=== PATIENT | female | born 1975 | race Caucasian/White ===

== ENCOUNTER 2019-12-20 22:10 | Emergency (ER) | payer MEDICARE, SELFPAY ==
--- NOTE | ~2019-12-20 | XR_ITS ---
XR knee RT min 4V 12/20/2019 22:34 INDICATION: Right knee pain PROCEDURE: 4 views right knee COMPARISON: No prior studies for comparison. FINDINGS: Fracture, dislocation or subluxation is not identified. No significant joint effusion. Mild osteoarthritis of the knee. The soft tissues appear within normal limits. No foreign bodies are darwin ntified. IMPRESSION: 1: NO ACUTE BONE OR JOINT ABNORMALITY IDENTIFIED. Reviewed, dictated and finalized at location A.
[2019-12-20 22:15] VITALS: BP 131/83; PULSE 99; RESP 14; TEMP 36.2; O2SAT 100
--- NOTE | 2019-12-20 22:16 | ED.LOWEXIN ---
HPI - Extremity Injury (Lower) General Chief Complaint: Extremity Injury, Lower Stated Complaint: KNEE PAIN Time Seen by Provider: 12/20/19 22:16 Source: patient Mode of arrival: ambulatory Limitations: no limitations History of Present Illness HPI Narrative: Patient is a 44-year-old female who presents for evaluation right knee pain over the past 3 weeks. Patient has reported intermittent pain in the right knee that travels into her right calf. She denies redness, but does report swelling in the right calf. She reports that she had been taking glucosamine and chondroitin [id number] with minimal to no improvement in her symptoms. She had also been taking anti-inflammatories without any improvement. Patient states she has history of many injuries in this knee but but denies any history of surgeries. She states she has bad arthritis in this knee. Patient states that today she was trying to get up onto the bed of her truck when she heard a loud popping sensation and felt immediate pain on the inside aspect of the right knee. Patient denies any bruising, redness. She reports pain radiates down into her calf. She denies any numbness. She purchased a knee brace from [employer], has been wearing that which does seem to help the pain. Related Data Allergies Allergy/AdvReac Type Severity Reaction Status Date / Time No Known Allergies Allergy Unverified 10/16/15 11:46 Review of Systems Review of Systems: Narrative: CONSTITUTIONAL: Denies fever, chills, or sweats. ENT: Denies rhinorrhea, congestion, sore throat, or otalgia. CARDIOVASCULAR: Denies chest pain, palpitations, or edema. RESPIRATORY: Denies cough or dyspnea. GASTROINTESTINAL: Denies abdominal pain, nausea, vomiting, or diarrhea. GENITOURINARY: Denies dysuria or hematuria. SKIN: Denies rash or itching. MUSCULOSKELETAL: Denies back pain, reports right knee pain, right calf pain NEUROLOGIC: Denies headache, numbness, or weakness. [facility] Past Medical History Medical History (Updated 12/20/19 @ 23:29 by Velvet Silverman MD) Methamphetamine abuse Social History Social History (Updated 12/20/19 @ 22:29 by Velvet Silverman MD) Smoking status: Current every day smoker Tobacco type: cigarettes Alcohol intake: current Substance use: current Substance use type: amphetamines Gender identity (if verbalized by the patient): Female Exam Narrative: Exam Narrative: GENERAL: Awake, alert, conversant HEAD: Normocephalic, atraumatic. EYES: PERRLA and EOMI. ENT: Nares clear, no rhinorrhea or epistaxis. Mucous membranes moist. NECK: Supple. CHEST: No respiratory distress, breathing even and non labored HEART: Regular rate, sinus rhythm ABDOMEN:Non distended, non tender EXTREMITIES: Right knee: No tenderness overlying the patella. No obvious deformity or ecchymoses. Mild knee effusion. No erythema or warmth. Tenderness to the medial aspect of the right knee. No lateral tenderness. No pain with internal or external rotation of the right hip. There is pain with active and passive flexion of the right knee. No pain with extension. Mild, nonpitting edema of the right lower extremity. No calf tenderness. Intact sensation distally. DP pulse 2+. SKIN: Warm, dry, no rash. NEURO:No focal deficits. Alert and oriented x3 Course Vital Signs Vital signs: Vital Signs Temperature 36.2 C L 12/20/19 22:15 Pulse Rate 99 12/20/19 22:15 Respiratory Rate 14 12/20/19 22:15 Blood Pressure 131/83 12/20/19 22:15 Pulse Oximetry 100 12/20/19 22:15 Temperature 36.2 C L 12/20/19 22:15 Pulse Rate 99 12/20/19 22:15 Respiratory Rate 14 12/20/19 22:15 Blood Pressure 131/83 12/20/19 22:15 Pulse Oximetry 100 12/20/19 22:15 MDM - Extremity Injury (Lower) MDM Narrative Medical decision making narrative: Patient presented for evaluation of acute on chronic right knee pain, seems to worsen after standing onto a tailgate of her truck today with immediat
[2019-12-20 23:21] LABS: D Dimer 0.36 ug/mL (<0.48)
[2019-12-20 23:55] VITALS: BP 135/76; PULSE 92; RESP 16; TEMP 36.6; O2SAT 99
== END 2019-12-20 23:58 | disposition home or self-care (01) ==
PROVIDERS: Emergency Provider Emergency Medicine
DX: S86.911A Strain of unspecified muscle(s) and tendon(s) at lower leg level, right leg, initial encounter (principal); F17.210 Nicotine dependence, cigarettes, uncomplicated; M17.11 Unilateral primary osteoarthritis, right knee; X50.9XXA Other and unspecified overexertion or strenuous movements or postures, initial encounter
CPT/HCPCS: 36415; 73564; 85380; 99283

== ENCOUNTER 2021-12-08 19:19 | Inpatient (IN) | payer MEDICARE, SELFPAY ==
[2021-12-08] VITALS (10 sets, daily range): BP systolic 114–136; BP diastolic 59–98; PULSE 80–127; RESP 15–23; TEMP 36.4–37.1; O2SAT 95–100; BMI 33.7
--- NOTE | ~2021-12-08 | MR_ITS ---
EXAMINATION: MR brain/brain stem wo con DATE: 12/11/2021 17:00 INDICATION: Headache. Seizure. TECHNIQUE: Magnetic resonance imaging (MRI) of the brain and brainstem was performed without intraven ous contrast. COMPARISON: Head CT 12/08/2021 FINDINGS: There is no intracranial hemorrhage, acute infarction, or abnormal intracranial mass lesion . The hippocampi are normal and symmetric. The ventricles are normal in size. There are small bilater al mastoid effusions. There is mild mucosal thickening in left maxillary sinus. The orbits are normal . IMPRESSION: 1. Normal brain. Reviewed, dictated and finalized at location A. IMPRESSION: 1. Normal brain.
--- NOTE | ~2021-12-08 | US_ITS ---
EXAMINATION: US abdomen complete DATE: 12/10/2021 11:08 INDICATION: Nondiabetic hypoglycemia TECHNIQUE: Multiple grayscale and Doppler ultrasound images of the abdomen were obtained. COMPARISON: None available FINDINGS: The head and body of the pancreas are normal. The pancreatic tail is obscured by bowel gas. The liver is normal with normal echogenicity and echotexture. No surface nodularity. Normal hepatope nando flow in the main portal vein. The gallbladder is normal with no abnormal wall thickening, pericho lecystic fluid or stones. The normal common bile duct measures 5 mm. There was no sonographic Broussard sign. The visualized portions of the aorta and inferior vena cava are normal. The right kidney measures 11.9 x 3.7 x 5.2 cm. The left kidney measures 11.3 x 5.7 x 6.8 cm. The kidn eys demonstrate normal parenchymal echogenicity. There is no hydronephrosis. Multiple hyperechoic foc i of the spleen are consistent with old granulomatous disease. The spleen measures 11.3 cm. IMPRESSION: 1. No sonographic correlate for the patient's symptoms. Reviewed, dictated and finalized at location A.
--- NOTE | ~2021-12-08 | US_ITS ---
EXAMINATION: US venous doppler UE DATE: 12/13/2021 09:25 INDICATION: Left upper extremity edema and erythema TECHNIQUE: Harvey scale images with and without compression and Doppler images of the left upper extrem ity veins were obtained. COMPARISON: None. FINDINGS: The left internal jugular vein, subclavian vein, axillary vein, brachial veins, radial vein, and ulna r vein are patent. There is superficial thrombosis of the left basilic and cephalic veins. IMPRESSION: 1. Patent left upper extremity deep veins. No evidence of deep venous thrombosis. 2: Superficial thrombosis of the left basilic and cephalic veins. Reviewed, dictated and finalized at location A. IMPRESSION: 1. Patent left upper extremity deep veins. No evidence of deep venous thrombosi s. 2: Superficial thrombosis of the left basilic and cephalic veins.
--- NOTE | ~2021-12-08 | CT_ITS ---
EXAMINATION: CT brain wo con DATE: 12/08/2021 19:50 INDICATION: new onset seizure, intermittent dizziness post seizure . TECHNIQUE: Computed tomography (CT) of the head was performed without intravenous contrast. The mA wa s adjusted according to patient size. Iterative reconstruction technique was employed. The dose-lengt h product was 605.33 mGy-cm. COMPARISON: 09/06/2010 FINDINGS: No acute intracranial hemorrhage or extra-axial fluid collection. No hydrocephalus, mass, or herniation. No acute ischemic infarct. Unremarkable dural venous sinus attenuation. No acute osseous abnormality. The aerated spaces are clear. IMPRESSION: No acute intracranial process. Reviewed, dictated and finalized at location K.
[2021-12-08 19:18] LABS: Basophils Absolute Auto 0.1 K/mm3 (0.0-0.1); Basophils Percent Auto 1.9 % (0.2-1.2); Eosinophils Absolute Auto 0.3 K/mm3 (0-0.3); Eosinophils Percent Auto 4.3 % (0-4.4); Immature Granulocyte Absolute 0.01 K/mm3 (0.00-0.031); Immature Granulocyte Percent A 0.2 % (0-0.5); Lymphocytes Absolute Auto 2.11 K/mm3 (0.9-3.2); Lymphocytes Percent Auto 35.9 % (18.3-44.2); Mean Corpuscular HGB Conc 24.8 g/dl (32-36); Mean Corpuscular Hemoglobin 15.1 pg (26-34); Mean Corpuscular Volume 60.8 fl (80-100); Mean Platelet Volume 8.3 fl (7.4-10.4); Monocytes Absolute Auto 0.8 K/mm3 (0.1-0.6); Monocytes Percent Auto 13.4 % (2.6-8.5); Neutrophils Absolute Auto 2.6 K/mm3 (1.3-6.7); Neutrophils Percent Auto 44.3 % (45.5-73.1); Platelet Count Result 781 k/mm3 (150-375); Red Blood Count 4.11 M/mm3 (4.2-5.4); White Blood Count 5.9 K/mm3 (4.5-10.0)
[2021-12-08] MEDS: LORazepam INJ (*CRX) 2 MG/ML VIAL 1 MG IV PUSH (19:18)
[2021-12-08] MEDS: SODIUM CHLORIDE 0.9% IV 1,000 ML 999 ML IV CONT (19:18)
--- NOTE | 2021-12-08 19:19 | ED.SEIZURE ---
HPI - Seizure General Chief Complaint: Seizure Stated Complaint: new onset seizure History of Present Illness HPI Narrative: 46-year-old female with a hx of anemia presents to the emergency room for evaluation of new onset of seizure-like activity. Patient presents from work via EMS. According to EMS, bystanders saw her stiffen up and then fall to the ground displaying seizure-like activity for several seconds. On presentation to the ER, patient was confused postictal. On presentation to the ER, patient is alert and oriented x2, unsure as to what date it is in the events that led her to the emergency room. Patient is crying. Patient was able to admit to staff that she has a recent and well-known history of using multiple recreational substances, including cocaine, methamphetamine and marijuana. Patient states she has not used any drugs in 3 months. Denies a headache dizziness, chest pain or shortness of breath, abdominal pain or fevers. Denies any injury or trauma. Related Data Allergies Allergy/AdvReac Type Severity Reaction Status Date / Time No Known Allergies Allergy Verified 12/08/21 19:19 [facility] Past Medical History Medical History (Updated 12/21/19 @ 00:00 by Holley Moon) Methamphetamine abuse Social History Social History (Updated 12/20/19 @ 22:29 by Velvet Silverman MD) Smoking status: Current every day smoker Tobacco type: cigarettes Alcohol intake: current Substance use: current Substance use type: amphetamines Gender identity (if verbalized by the patient): Female Course Course Emergency Course: 2019: Discussed case with MD Menjivar. She is requesting an MRI of the brain with and without contrast, and EEG. Requests to wait for the results of the EEG before initiating keppra. 2114: Discussed case with Dr. Collado. 2129: Went into reevaluate the patient. Patient is alert and oriented x4 at this time. Patient remarked to me that she bought a glucometer several months ago because she thought she was experiencing hypoglycemia. Patient states that she has had multiple blood sugar readings below 80, today it was 38 and yesterday was 57. Patient is unsure as to why she is having recurring hypoglycemia episodes. Vital Signs Vital signs: Vital Signs Temperature 36.6 C 12/08/21 19:05 Pulse Rate 127 H 12/08/21 19:05 Respiratory Rate 15 12/08/21 19:05 Blood Pressure 136/98 H 12/08/21 19:05 Pulse Oximetry 100 12/08/21 19:05 Oxygen Delivery Room Air 12/08/21 19:05 Temperature 36.6 C 12/08/21 19:05 Pulse Rate 96 12/08/21 21:19 Respiratory Rate 18 12/08/21 21:19 Blood Pressure 121/70 12/08/21 21:19 Pulse Oximetry 99 12/08/21 21:19 Oxygen Delivery Room Air 12/08/21 19:05 MDM - Seizure Lab Data Result diagrams: 12/08/21 19:14 12/08/21 19:14 Labs: Lab Results 12/08/21 12/08/21 12/08/21 Range/Units 19:14 19:14 20:13 WBC 5.9 (4.5-10.0) K/mm3 RBC 4.11 L (4.2-5.4) M/mm3 Hgb 6.2 L* (12.0-15.0) g/dL Hct 25.0 L (37.0-47.0) % MCV 60.8 L (80-100) fl MCH 15.1 L (26-34) pg MCHC 24.8 L (32-36) g/dl RDW 21.0 H (11.5-14.5) % Plt Count 781 H (150-375) k/mm3 MPV 8.3 (7.4-10.4) fl Immature Gran % (Auto) 0.2 (0-0.5) % Neut % (Auto) 44.3 L (45.5-73.1) % Lymph % (Auto) 35.9 (18.3-44.2) % Woodward % (Auto) 13.4 H (2.6-8.5) % Eos % (Auto) 4.3 (0-4.4) % Baso % (Auto) 1.9 H (0.2-1.2) % Lymph # (Auto) 2.11 (0.9-3.2) K/mm3 Woodward # (Auto) 0.8 H (0.1-0.6) K/mm3 Eos # (Auto) 0.3 (0-0.3) K/mm3 Baso # (Auto) 0.1 (0.0-0.1) K/mm3 Abs Immat Gran (auto) 0.01 (0.00-0.031) K/mm3 Absolute Neuts (auto) 2.6 (1.3-6.7) K/mm3 Absolute Nucleated RBC 0.0 (0.0-0.012) K/mm3 Nucleated RBC % 0.0 (0.0-0.2) % Platelet Estimate Increased (Adequate) Hypochromasia 2+ (NORMAL) Anisocytosis 3+ (NORMAL) Schistocytes None seen
[2021-12-08 19:28] LABS: Alanine Aminotransferase 22 U/L (6-35); Albumin Level 4.6 g/dL (3.5-5.1); Alkaline Phosphatase 80 U/L (38-126); Anion Gap 11 mmol/L (8-16); Aspartate Amino Transferase 32 U/L (14-36); Bilirubin,Total 0.3 mg/dL (0.2-1.3); Blood Urea Nitrogen 8 mg/dL (7-17); Calcium 8.8 mg/dL (8.4-10.2); Carbon Dioxide 21 mmol/L (22-30); Chloride 105 mmol/L (98-107); Estimated CRCL calculation 108 ml/min; Estimated Glomerular Filt Rate > 60; Glucose 80 mg/dL (65-110); Lipase 71 U/L (23-300); Potassium 3.4 mmol/L (3.4-5.0); Sodium 137 mmol/L (137-145)
--- NOTE | 2021-12-08 19:31 | ECG_ITS ---
Measurements Intervals [place] Rate: 120 P: 71 HI: 142 QRS: 41 QRSD: 97 T: 42 QT: 329 QTc: 467 Interpretive Statements SINUS TACHYCARDIA NONSPECIFIC T-WAVE ABNORMALITY BORDERLINE ECG NO PREVIOUS ECG AVAILABLE FOR COMPARISON Electronically Signed On 12-09-2021 15:39:33 CDT by Denny Aaron M.D.
[2021-12-08 19:39] LABS: Hemoglobin 6.2 g/dL (12.0-15.0)
[2021-12-08 19:40] LABS: Troponin I < 0.012 ng/mL (0.000-0.034)
[2021-12-08 19:42] LABS: Anisocytosis 3+ (NORMAL); Hypochromasia 2+ (NORMAL); Platelet Estimate Increased (Adequate); Schistocytes None Seen (NORMAL)
[2021-12-08 20:38] LABS: Add Urine Microscopic? YES; Appearance Urine Clear (Clear); Bilirubin Urine Negative (Negative); Blood Urine Negative (Negative); Color Urine Yellow (Yellow); Glucose Urine UA Negative (Negative); Ketones Urine Negative (Negative); Leukocyte Esterase Ur Negative LEU/UL (Negative); Mucus Urine Rare /lpf; Nitrate Urine Negative (Negative); Protein Urine 1+ mg/dL (Negative); RBC Urine 0-2 /hpf (0-2); Specific Grav Ur 1.014 (1.001-1.035); Squamous Epithelial Cell Urine Few /hpf (Few); Urobilinogen Urine Negative mg/dL (<2.0); WBC Urine 0-3 /hpf
[2021-12-08 20:54] LABS: Pregnancy On Board Control Positive; Urine Pregnancy Test Negative
[2021-12-08 20:59] LABS: Iron 26 ug/dL (37-170)
[2021-12-08 21:02] LABS: Amphetamine Screen Urine Negative (Negative); Barbiturate Screen Urine Negative (Negative); Benzodiazepines Screen Urine Negative (Negative); Cannabinoid Screen Urine Negative (Negative); Cocaine Screen Urine Negative (Negative); Methadone Screen Urine Negative (Negative); Opiate Screen Urine Negative (Negative); Phencyclidine Screen Urine Negative (Negative)
[2021-12-08 21:06] LABS: Percent Iron Saturation 6 % (20-50)
--- NOTE | 2021-12-08 21:19 | PM.IMHP ---
H&P: HPI History of Present Illness Date/Time: 12/08/21 21:19 Chief Complaint: Seizure-like activity Narrative: 46-year-old female with past medical history of obstructive sleep apnea, persistent obesity status post gastric bypass procedure, recurrent iron deficiency anemia and bipolar disorder who presented to the ER via EMS from her place of employment after having witnessed seizure-like activity. The patient reports that she has been having episodes of hypoglycemia at home. Hypoglycemic events have been occurring several times over the last couple of he. She does have a distant history of gastric bypass procedure but did not have hypoglycemic events until recently. She stated that she last ate something around 330 in the morning. She did not eat against her until right after she got to work when she started to feel like she was becoming hypoglycemic. The patient reports her blood sugar was 138 and then dropped to 117 a few minutes later. She felt that since her glucoses were dropping that she needed to eat a cookie. Just prior to eating a cookie her blood sugars were 38. She went to go sit down and once she was seated evidently started having seizure-like activity. EMS mentions that they checked in Accu-Chek on the patient but did not record the Accu-Chek value. When the patient arrived to the ER her glucose was 80. And only when the patient had the seizure lasted for about a minute per witness report. They reported the patient has stiffened up and was assisted to the ground. She did not her head. She was confused and postictal in the ER and was alert oriented x2. She initially could not recall the events that brought her to the ER or going to work. At the time of my evaluation after she arrived to the medical floor the patient was alert oriented x4 and could recall going to work and give me the details about not eating. She reports that she has been having a sore throat any time she tries to swallow for the last 3 years. She has a chronic history of iron deficiency anemia since 2016 at which time her hemoglobin was too low for her to have her right rotator cuff repair. She failed a follow-up regarding her anemia and has not seen a doctor since that time. She reports that she has not been taking care of herself. She reports that she has been feeling more fatigued recently and thought it could be due to her history of anemia. Subsequently she started taking iron supplements 3 days ago. She has been having some darker stools since she started her iron supplements but was not having any melena or hematochezia before that. She reports that she does not take iron supplements often because she knows it can cause constipation. She denies any constipation currently. She did stop using cocaine 3 months ago and last used methamphetamine 1 year ago. She used to inject the drugs and subsequently has poor peripheral access. She smokes marijuana frequently. She also has history of heavy alcohol use drinking 5 beers and 5 shots 3-5 days a week. Her last alcohol use was 3 days ago. She states that she drinks heavier on the days that she is not working. She denies any history of alcohol withdrawal. She reports that she chronically feels fatigued but thinks that this is due to her anemia. She frequently falls asleep in the middle of conversations and states this is not unusual for her. She does have history of sleep apnea but has not used her CPAP in a long time. She reports that the last time she tried to use her CPAP she felt as if it was ?sucking the air out of her lungs.? She denies any cough, congestion, fevers or chills. She has not been vaccinated against COVID-19 and did have COVID-19 last year. She denies any nausea or vomiting. She reports that her weight has been stable since she quit using methamphetamines. She reports that she has anxiety and depression as well as bipolar disorder and multiple personality disorder. She reports that she is not
[2021-12-08 21:34] LABS: Ferritin 3.65 ng/mL (6.24-137)
[2021-12-08 21:46] LABS: Reticulocyte Hemoglobin Conten 13.7 pg (28.2-35.7); Reticulocyte Percent 1.62 % (0.7-4.3); Reticulocytes Absolute 0.07 B/L (32.2-175.7)
[2021-12-08 23:12] LABS: Glucose Point of Care 152 mg/dl (65-105)
[2021-12-08] MEDS: SODIUM CHLORIDE 0.9% IV 250 ML 30 ML IV CONT (23:20)
[2021-12-08 23:55] LABS: Folic Acid > 20.0 ng/mL (2.76->20)
[2021-12-09] VITALS (18 sets, daily range): BP systolic 114–156; BP diastolic 61–100; PULSE 65–103; RESP 16–19; TEMP 36.2–36.9; O2SAT 96–100
[2021-12-09 00:20] LABS: Thyroid Stimulating Hormone Reflex 0.537 uIU/mL (0.465-4.68)
[2021-12-09] MEDS: ACETAMINOPHEN 325 MG TABLET 650 MG PO ×3 (00:31→10:47)
[2021-12-09] MEDS: IRON SUCROSE COMPLEX 500 MG in SODIUM CHLORIDE 0.9% IV 250 ML 78.57 MG IVPB (01:50)
[2021-12-09 04:34] LABS: Glucose Point of Care 88 mg/dl (65-105)
[2021-12-09 06:03] LABS: Hematocrit 25.7 % (37.0-47.0); Mean Corpuscular HGB Conc 26.5 g/dl (32-36); Mean Corpuscular Hemoglobin 16.8 pg (26-34); Mean Corpuscular Volume 63.5 fl (80-100); Mean Platelet Volume 8.7 fl (7.4-10.4); Platelet Count Result 656 k/mm3 (150-375); Red Blood Count 4.05 M/mm3 (4.2-5.4); Red Cell Distribution Width 23.9 % (11.5-14.5); White Blood Count 7.4 K/mm3 (4.5-10.0)
[2021-12-09 06:16] LABS: Hemoglobin 6.8 g/dL (12.0-15.0)
[2021-12-09 06:18] LABS: Anion Gap 14 mmol/L (8-16); Blood Urea Nitrogen 8 mg/dL (7-17); Calcium 8.2 mg/dL (8.4-10.2); Carbon Dioxide 22 mmol/L (22-30); Chloride 103 mmol/L (98-107); Estimated CRCL calculation 106 ml/min; Estimated Glomerular Filt Rate > 60; Glucose 104 mg/dL (65-110); Potassium 3.5 mmol/L (3.4-5.0); Sodium 139 mmol/L (137-145)
--- NOTE | 2021-12-09 07:14 | PM.IMPN ---
Progress Note: A&P Assessment and Plan (1) Witnessed seizure-like activity: Code(s): R56.9 - Unspecified convulsions Status: Acute Assessment and Plan: Most likely due to patient's reported episodes of hypoglycemia. Will monitor neurologic status closely. Neurology was consulted in the ER but given that the patient has likely been having hypoglycemia I do not feel the patient will need EEG and MRI that was previously ordered. Continue Accu-Cheks q.4 hours overnight. monitor on elevator dispatcher for seizure activity (2) Acute on chronic anemia: Code(s): D64.9 - Anemia, unspecified Status: Acute Assessment and Plan: I suspect the anemia is due to a combination of inadequate iron intake and or possible component of GI chronic losses given patient's history of prior gastric bypass procedure, dysphagia with swallowing and what sounds like possible GERD symptoms. Patient may also have underlying gastritis. c/o belching and abd pain. GI cocktail x1 plus continue PPI therapy. Transfused a total of 2 units PRBC. Repeat H/H at 1300 Continue venofer 500 mg IV x3 doses. Stool occult pending. place patient on p.o. iron supplementation at discharge. (3) Hypoglycemia: Code(s): E16.2 - Hypoglycemia, unspecified Status: Acute Assessment and Plan: Patient's glucose on arrival was 80 after she consumed a cookie. She ate a turkey sandwich and chips in the ER and her glucose incresed to 150. I suspect the hypoglycemia is due to the patient's skipping meals specially in the setting of history of bypass surgery and heavy alcohol use. She describes low blood sugars following meals, suggesting postpradial hypoglycemia which may be late manifestation from bypass surgery. Pre and postpradial glucose x1 now. Accu-Cheks Q 4 hours overnight. Then ACHS hemoglobin A1c pending. Consult feather baler check abd US to rule out possible insulinoma Check cortisol and insulin autoantibodies in am. add hypoglycemia protocol Plan CODE STATUS: FULL CODE Disposition: home when medically stable. Time Spent With Patient Time with patient: 25 - 35 minutes Subjective Date/time seen: 12/09/21 07:14 She has some nausea and has been belching. She notes some RUQ and LUQ pain this morning. Her symptoms started after breakfast. She also reports recently having hypoglycemic symptoms after eating sweet foods like maple syrup. Review of Systems Review of Systems: All systems reviewed & are unremarkable except as noted in HPI and below Exam Narrative: General:?sitting up in the bed. No acute distress. HEENT:?Normocephalic.?Pupils equal and round. Sclera anicteric.? Oral mucosa moist.?TETLIN. Neck:??Supple. No JVD.Speaking in 1-2 words due to cognitive status. Cardiovascular:?Normal S1 and S2 regular rate and rhythm. No murmurs, gallops or rubs. Gastrointestinal:??Abdomen is soft, nontender, and nondistended with positive bowel sounds. Skin:??Warm and dry. Pallor. no rashes or lesions. Multiple scattered tattoos. Extremities:??No cyanosis, clubbing, or edema. Radial and pedal pulses intact. Grossly normal ROM all extremities. Neurological:??Awake. Oriented to self. Cranial nerves 2-12 grossly intact. Speech clear and appropriate. Psychiatric:??Pleasant and cooperative with normal mood and affect. Objective Data Vital Signs Vital Signs: Vital Signs - 24 hr 12/08/21 19:05 12/08/21 19:30 12/08/21 20:01 Temperature 98 F Pulse Rate 127 H 119 H 108 H Respiratory Rate 15 16 Blood Pressure 136/98 H 117/65 Pulse Oximetry 100 100 99 Oxygen Delivery Room Air 12/08/21 20:55 12/08/21 21:19 12/08/21 21:56 Temperature Pulse Rate 100 96 112 H Respiratory Rate 18 18 23 H Blood Pressure 126/98 H 121/70 130/70 Pulse Oximetry 100 99 100 Oxygen Delivery 12/08/21 22:11 12/08/21 22:48 12/08/21 23:46 Temperature 97.5 F L Pulse Rate 99 95 Respiratory Rate 20
[2021-12-09] MEDS: SODIUM CHLORIDE 0.9% IV 250 ML 30 ML IV CONT (08:03)
[2021-12-09 08:11] LABS: Glucose Point of Care 95 mg/dl (65-105)
[2021-12-09] MEDS: FERROUS SULFATE 324 MG TABLET PO ×2 (09:44→17:25)
[2021-12-09] MEDS: PANTOPRAZOLE 40 MG TABLET PO (09:44)
[2021-12-09] MEDS: BELLADONNA ALK/PHENOB ELIX 10 ML, MAG HYDROX/ALUMINUM HYD/SIMETH 30 ML, LIDOCAINE HCL 2... PO (09:45)
[2021-12-09 12:28] LABS: Glucose Point of Care 91 mg/dl (65-105)
[2021-12-09 12:28] LABS: Glucose Point of Care 128 mg/dl (65-105)
[2021-12-09 13:34] LABS: Hemoglobin 7.3 g/dL (12.0-15.0)
[2021-12-09 14:05] LABS: Hemoglobin A1C 5.5 % (<5.7)
[2021-12-09 16:47] LABS: Glucose Point of Care 114 mg/dl (65-105)
[2021-12-09] MEDS: IBUPROFEN 400 MG TABLET PO (20:17)
[2021-12-09 20:43] LABS: Glucose Point of Care 94 mg/dl (65-105)
[2021-12-10] VITALS (14 sets, daily range): BP systolic 102–142; BP diastolic 55–102; PULSE 60–81; RESP 14–18; TEMP 36.4–37.4; O2SAT 98–100
[2021-12-10 00:32] LABS: Glucose Point of Care 74 mg/dl (65-105)
[2021-12-10] MEDS: ACETAMINOPHEN 325 MG TABLET 650 MG PO ×2 (00:48→20:02)
[2021-12-10 04:32] LABS: Glucose Point of Care 94 mg/dl (65-105)
[2021-12-10 05:58] LABS: Mean Corpuscular HGB Conc 26.5 g/dl (32-36); Mean Corpuscular Hemoglobin 17.5 pg (26-34); Mean Corpuscular Volume 65.8 fl (80-100); Mean Platelet Volume 8.8 fl (7.4-10.4); Platelet Count Result 559 k/mm3 (150-375); Red Blood Count 3.95 M/mm3 (4.2-5.4); Red Cell Distribution Width 25.3 % (11.5-14.5); White Blood Count 5.6 K/mm3 (4.5-10.0)
[2021-12-10 06:03] LABS: Hemoglobin 6.9 g/dL (12.0-15.0)
[2021-12-10 06:39] LABS: Cortisol Random 0.81 ug/dL
--- NOTE | 2021-12-10 07:32 | PM.IMPN ---
Progress Note: A&P Assessment and Plan (1) Hypoglycemia: Code(s): E16.2 - Hypoglycemia, unspecified Status: Acute Assessment and Plan: Patient's glucose on arrival was 80 after she consumed a cookie. It was noted to be 38 mg/dL prior to this. She ate a turkey sandwich and chips in the ER and her glucose incresed to 150. history of bypass surgery (Kush-en-y procedure) in 2008 and heavy alcohol use. She describes low blood sugars following meals, suggesting postpradial hypoglycemia which may be late manifestation from bypass surgery. Pre and postpradial glucose 91 mg/dL pre and 128 mg/dL postprandial. No symptoms reported. Accu-Cheks Q 4 hours while NPO. hemoglobin A1c 5.5%. Consult mobility developer abd US without evidence of insulinoma cortisol 0.81, ACTH pending, and insulin autoantibodies pending. Continued hypoglycemia protocol (2) Acute on chronic anemia: Code(s): D64.9 - Anemia, unspecified Status: Acute Assessment and Plan: anemia is likely due to a combination of inadequate iron intake and or possible component of GI chronic losses given patient's history of prior gastric bypass procedure, dysphagia with swallowing and what sounds like possible GERD symptoms. Patient may also have underlying gastritis. c/o belching and abd pain. Continue PPI IV therapy BID Transfused a total of 2 units PRBC. Repeat Hgb 7.3 Continue venofer 500 mg IV x3 doses, started 12/09/21. Day 2 Stool occult ordered and pending. place patient on p.o. iron supplementation at discharge. 12/10/21 Hgb 6.9 today despite transfusion of 2 units PRBC yesterday. Ordered an additional 1 unit PRBC today. Ferrous sulfate 325 mg PO BID continued GI consulted and appreciate recommendations. (3) Witnessed seizure-like activity: Code(s): R56.9 - Unspecified convulsions Status: Acute Assessment and Plan: Most likely due to patient's reported episodes of hypoglycemia. Will monitor neurologic status closely. Neurology was consulted in the ER but given that the patient has likely been having hypoglycemia. Hold EEG, MRI and Neuro consult for now that was previously ordered. Continue Accu-Cheks q.4 hours overnight. monitor on educational director for seizure activity (4) GERD (gastroesophageal reflux disease): Qualifiers: Esophagitis presence: esophagitis presence not specified Qualified Code(s): K21.9 - Gastro-esophageal reflux disease without esophagitis Code(s): K21.9 - Gastro-esophageal reflux disease without esophagitis Status: Acute Assessment and Plan: Epigastric pain and burning chest pain following eating reported on 12/09/21. Improved after GI cocktail and PPI therapy started. Persistent anemia despite transfusion. No melena, hematochezia, or hematemesis. Change to Protonix 40 mg IV BID. GI consulted and appreciate recommendations. (5) Headache: Qualifiers: Headache type: unspecified Headache chronicity pattern: episodic headache Intractability: not intractable Qualified Code(s): R51.9 - Headache, unspecified Code(s): R51.9 - Headache, unspecified Status: Acute Assessment and Plan: C/o headache, paresthesia to face that is similar to prior migraines. No aura. Start Fioricet 1 tablet Q4 hours PRN headache started. Consider MRI if NOLASCO characteristics change, worsen or neurologic deficit noted. Plan CODE STATUS: FULL CODE Disposition: home when medically stable. Time Spent With Patient Time with patient: 25 - 35 minutes Subjective Date/time seen: 12/10/21 07:32 She c/o a headache this morning and some tingling to her face. She has prior history of headaches and takes Excedrin as needed for them. She denies epigastric pain, nausea or emesis today. She does endorse burning pain to her throat with eating and feeling like food gets stuck occasionally. This sensation is rare with liquids. She denies stool
[2021-12-10] MEDS: SODIUM CHLORIDE 0.9% IV 250 ML 30 ML IV CONT (08:15)
[2021-12-10 08:19] LABS: Glucose Point of Care 93 mg/dl (65-105)
[2021-12-10] MEDS: ACETAMINOPHEN/BUTALBITAL/CAFFEINE 325-50-40 MG TABLET (FIORICET) 1 TAB PO ×3 (11:17→23:18)
[2021-12-10] MEDS: IRON SUCROSE COMPLEX 500 MG in SODIUM CHLORIDE 0.9% IV 250 ML 78.57 MG IVPB (11:18)
[2021-12-10] MEDS: PANTOPRAZOLE SODIUM IV 40 MG VIAL IV PUSH ×2 (11:19→20:03)
[2021-12-10 12:12] LABS: Glucose Point of Care 91 mg/dl (65-105)
--- NOTE | 2021-12-10 15:06 | PCDIET ---
Consult for nutrition education: preventing hypoglycemia for pt with history of gastric bypass. Pt did want education today (12/10/2021), asked if I could see her tomorrow(Friday12/11/2021) because she had a headache.
[2021-12-10 15:25] LABS: Hematocrit 31.1 % (37.0-47.0); Hemoglobin 8.4 g/dL (12.0-15.0)
--- NOTE | 2021-12-10 15:26 | WPDGICN ---
Assessment and Plan Assessment and plan (1) History of gastric bypass: Onset Date: 08/2006 Code(s): Z98.84 - Bariatric surgery status Status: Acute Assessment and Plan: patient has a history of gastric bypass surgery which certainly can contribute to iron malabsorption and could contribute to her current iron deficiency. (2) Iron deficiency anemia after gastrectomy: Code(s): K91.89 - Other postprocedural complications and disorders of digestive system; D50.8 - Other iron deficiency anemias Status: Acute Assessment and Plan: Patient found to have iron deficiency anemia. Differential includes GI blood loss or malabsorption. Having previously had gastric bypass surgery this likely contributes to her anemia. Plan for stool Hemoccult. Colonoscopy an EGD will be performed as they are currently request by primary care service. She may benefit from iron infusion rather than oral iron as this may not be absorbed well. (3) Bipolar disorder: Code(s): F31.9 - Bipolar disorder, unspecified Status: Acute (4) Witnessed seizure-like activity: Code(s): R56.9 - Unspecified convulsions Status: Acute GI Consult Note Consult date/time: 12/10/21 15:26 Reason for consult: Iron deficiency anemia HPI: Shiela Silverman is a 46 year old female I am asked to see at the request of the hospitalist service. Patient apparently at work and passed out was admitted the hospital because of concern over seizure. Patient was found to have profound microcytic iron deficiency anemia for this reason I have been consulted. Some of the history is obtained from the patient however patient refuses to open her eyes or give extensive answers. Most of the history is obtained from the chart otherwise. Currently patient denies any abdominal pain. She denies any obvious blood in her stools. She does have a prior history of heavy alcohol use. Is reported to be bipolar, she has a history of gastric bypass surgery in 2008 because of obesity. After admission the hospital she was found to be modestly hypoglycemic. She has a history of insulin-dependent diabetes mellitus. Currently she complains of a headache. Patient continues to use alcohol rather heavily. Most recent alcohol intake was 3 days prior to admission. Review of Systems Review of Systems: Review of systems noncontributory. [facility] Past Medical History Medical History (Updated 12/10/21 @ 15:30 by Martin Delcid MD) Anxiety and depression Bipolar disorder Iron deficiency anemia after gastrectomy Methamphetamine abuse Multiple personality disorder Obstructive sleep apnea Does not use CPAP but had polysomnogram in 2007 recommending CPAP of 11 Surgical History Surgical History (Updated 12/10/21 @ 15:30 by Martin Delcid MD) History of appendectomy (1992) History of gastric bypass (08/2006) Pre bypass weight was 320 lb History of tonsillectomy and adenoidectomy (~1990) History of tubal ligation (~2001) S/P foot surgery, right (05/2005) Plantar fascial release and excision of right calcaneal spur S/P right rotator cuff repair (09/2015) Family History Family History Father COPD (chronic obstructive pulmonary disease) Peripheral vascular disease Myocardial infarction, Onset Age: 62 Heart disease Obesity Sibling Alcoholism Mother Obesity Social History Social History (Updated 12/09/21 @ 00:45 by Mojgan Collado DO) Social History: She works at a local [employer] facility. She reports that she smokes a pack of cigarettes per day on the days that she drinks. She thinks that she has smoked up to a pack of cigarettes per day on and off since she was 15 years old with up to around 20 pack per year smoking history. She drinks approximately 5 beers in 5 shots a day 3-5 days a week. She has a history of both cocaine and IV methamphetamine use. She l
[2021-12-10] MEDS: ONDANSETRON INJ 4 MG/2 ML VIAL IV PUSH (15:41)
[2021-12-10] MEDS: FERROUS SULFATE 324 MG TABLET PO (16:21)
[2021-12-10] MEDS: PEG (High)/E-LYTE SOLN 4,000 ML BTL 4000 ML PO (16:21)
[2021-12-10 16:24] LABS: Glucose Point of Care 83 mg/dl (65-105)
[2021-12-10 20:27] LABS: Glucose Point of Care 95 mg/dl (65-105)
[2021-12-11] VITALS (12 sets, daily range): BP systolic 104–140; BP diastolic 63–80; PULSE 59–92; RESP 13–18; TEMP 36.6–36.8; O2SAT 94–100
[2021-12-11 02:17] LABS: Glucose Point of Care 97 mg/dl (65-105)
[2021-12-11 04:27] LABS: Glucose Point of Care 86 mg/dl (65-105)
[2021-12-11 05:39] LABS: Hematocrit 28.2 % (37.0-47.0); Hemoglobin 7.9 g/dL (12.0-15.0); Mean Corpuscular Hemoglobin 18.5 pg (26-34); Mean Platelet Volume 8.7 fl (7.4-10.4); Platelet Count Result 549 k/mm3 (150-375); Red Blood Count 4.27 M/mm3 (4.2-5.4); Red Cell Distribution Width 27.6 % (11.5-14.5); White Blood Count 6.3 K/mm3 (4.5-10.0)
[2021-12-11 05:58] LABS: Anion Gap 8 mmol/L (8-16); Blood Urea Nitrogen 3 mg/dL (7-17); Calcium 8.5 mg/dL (8.4-10.2); Carbon Dioxide 26 mmol/L (22-30); Chloride 106 mmol/L (98-107); Estimated CRCL calculation 106 ml/min; Estimated Glomerular Filt Rate > 60; Glucose 82 mg/dL (65-110); Potassium 3.6 mmol/L (3.4-5.0); Sodium 140 mmol/L (137-145)
[2021-12-11] MEDS: FERROUS SULFATE 324 MG TABLET PO ×2 (08:19→17:04)
[2021-12-11] MEDS: PANTOPRAZOLE SODIUM IV 40 MG VIAL IV PUSH ×2 (08:19→21:28)
[2021-12-11] MEDS: IRON SUCROSE COMPLEX 500 MG in SODIUM CHLORIDE 0.9% IV 250 ML 78.5 MG IVPB (08:35)
[2021-12-11 08:47] LABS: Glucose Point of Care 92 mg/dl (65-105)
--- NOTE | 2021-12-11 09:30 | PC.NURSE ---
To GI Lab per wheelchair, IV LAC. Report given to Joyce SUBRAMANIAN
[2021-12-11] MEDS: LACTATED RINGERS 1,000 ML 150 ML IV CONT (10:15)
--- NOTE | 2021-12-11 11:07 | WPDANESEPPF ---
Anes - Initial Pre Proc Eval Procedure: Operation Date: 12/11/21 10:45 Proposed Procedures p Esophagogastroduodenoscopy & Colonoscopy - Martin Delcid MD Date/Time: 12/11/21 11:07 Surgeon: Mojgan Collado DO Pre Op Diagnosis: new onset seizure Patient Data Age: 46 Gender: F Height: 1.63 m Weight: 89.1 kg Last Vital Signs Temp 97.8 F 12/11/21 10:04 Pulse 59 L 12/11/21 10:04 Resp 16 12/11/21 10:04 BP 140/63 12/11/21 10:04 Pulse Ox 99 12/11/21 10:04 O2 Del Method Room Air 12/11/21 10:04 Allergies Allergy/AdvReac Type Severity Reaction Status Date / Time No Known Allergies Allergy Verified 12/11/21 10:00 Home Medications Medication Instructions Recorded Confirmed Type acetaminophen 500 mg capsule 500 mg PO Q6H PRN fever or pain 12/20/19 12/08/21 Rx #30 caps ibuprofen 400 mg tablet 400 mg PO TID PRN fever or pain 10 12/20/19 12/08/21 Rx days #30 tabs Laboratory Tests 12/08/21 12/10/21 12/10/21 20:13 12:08 14:54 WBC RBC Hgb 8.4 g/dL L g/dL (12.0-15.0) Hct 31.1 % L % (37.0-47.0) MCV MCH MCHC RDW Plt Count MPV Sodium Potassium Chloride Carbon Dioxide Anion Gap BUN Creatinine Estim Creat Clear Calc Estimated GFR Glucose POC Capillary Glucose 91 mg/dl mg/dl (65-105) Calcium Crossmatch See Detail 12/10/21 12/10/21 12/10/21 16:22 20:05 23:18 WBC RBC Hgb Hct MCV MCH MCHC RDW Plt Count MPV Sodium Potassium Chloride Carbon Dioxide Anion Gap BUN Creatinine Estim Creat Clear Calc Estimated GFR Glucose POC Capillary Glucose 83 mg/dl mg/dl 95 mg/dl mg/dl 97 mg/dl mg/dl (65-105) (65-105) (65-105) Calcium Crossmatch 12/11/21 12/11/21 12/11/21 04:24 04:58 04:58 WBC 6.3 K/mm3 K/mm3 (4.5-10.0) RBC 4.27 M/mm3 M/mm3 (4.2-5.4) Hgb 7.9 g/dL L g/dL (12.0-15.0) Hct 28.2 % L % (37.0-47.0) MCV 66.0 fl L fl (80-100) MCH 18.5 pg L D pg (26-34) MCHC 28.0 g/dl L g/dl (32-36) RDW 27.6 % H % (11.5-14.5) Plt Count 549 k/mm3 H k/mm3 (150-375) MPV 8.7 fl fl (7.4-10.4) Sodium 140 mmol/L mmol/L (137-145) Potassium 3.6 mmol/L mmol/L (3.4-5.0) Chloride 106 mmol/L mmol/L (98-107) Carbon Dioxide 26 mmol/L mmol/L (22-30) Anion Gap 8 mmol/L mmol/L (8-16) BUN 3 mg/dL L D mg/dL (7-17) Creatinine 0.60 mg/dL L mg/dL (0.7-1.0) Estim Creat Clear Calc 106 ml/min ml/min Estimated GFR > 60 (59 - ) Glucose 82 mg/dL mg/dL (65-110) POC Capillary Glucose 86 mg/dl mg/dl (65-105) Calcium 8.5 mg/dL mg/dL (8.4-10.2) Crossmatch 12/11/21 08:39 WBC RBC Hgb Hct MCV MCH MCHC RDW Plt Count MPV Sodium Potassium Chloride Carbon Dioxide Anion Gap BUN Creatinine Estim Creat Clear Calc Estimated GFR Glucose POC Capillary Glucose 92 mg/dl mg/dl (65-105) Calcium Crossmatch Patient hx anesthesia problems: none Family hx anesthesia problems: none Results Review: All pre-operative results and documents have been reviewed as part of the pre-operative evaluation. REPLACED BY [facility] Past Medical History Medical History (Updated 12/10/21 @
--- NOTE | 2021-12-11 11:38 | SUR.OPER ---
EGD start 1138 end 1138, Colonoscopy start 1146 end 1201
--- NOTE | 2021-12-11 12:45 | PC.NURSE ---
Returned from GI Lab. Report received from Joyce
[2021-12-11 12:57] LABS: Glucose Point of Care 97 mg/dl (65-105)
[2021-12-11] MEDS: ACETAMINOPHEN/BUTALBITAL/CAFFEINE 325-50-40 MG TABLET (FIORICET) 1 TAB PO ×2 (13:03→21:35)
[2021-12-11 13:40] LABS: Lactate Dehydrogenase 138 U/L (120-246)
--- NOTE | 2021-12-11 13:44 | PCNSR ---
On 12/11/21, the student,Abdulkadir Mott, provided care and completed [facility] on this patient. I have reviewed the student's documentation and agree with the findings.
[2021-12-11] MEDS: GLUCOSE ORAL GEL 15 GM OF GLUCSE IN 37.5 GM TUBE PO (16:10)
--- NOTE | 2021-12-11 16:13 | PM.IMPN ---
Progress Note: A&P Assessment and Plan (1) Hypoglycemia: Code(s): E16.2 - Hypoglycemia, unspecified Status: Acute Assessment and Plan: Patient's glucose on arrival was 80 after she consumed a cookie. It was noted to be 38 mg/dL prior to this. She ate a turkey sandwich and chips in the ER and her glucose incresed to 150. history of bypass surgery (Kush-en-y procedure) in 2008 and heavy alcohol use. She describes low blood sugars following meals, suggesting postpradial hypoglycemia which may be late manifestation from bypass surgery. Pre and postpradial glucose 91 mg/dL pre and 128 mg/dL postprandial. No symptoms reported. Accu-Cheks Q 4 hours while NPO. hemoglobin A1c 5.5%. 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 Continued hypoglycemia protocol 12/11/21 Glucose 52mg/dL, she had eaten within a few hours before this. Nursing reports she c/o dizziness and shakiness. Repeat glucose 115. initiate physiologic dose prednisone 5 mg daily until evaluated by PCP and/or Endocrinology. (2) Acute on chronic anemia: Code(s): D64.9 - Anemia, unspecified Status: Acute Assessment and Plan: anemia is likely due to a combination of inadequate iron intake and or possible component of GI chronic losses given patient's history of prior gastric bypass procedure, dysphagia with swallowing and what sounds like possible GERD symptoms. Patient may also have underlying gastritis. c/o belching and abd pain. Continue PPI IV therapy BID Transfused a total of 2 units PRBC. Repeat Hgb 7.3 Continue venofer 500 mg IV x3 doses, started 12/09/21. Day 2 Stool occult ordered and pending. place patient on p.o. iron supplementation at discharge. 12/10/21 Hgb 6.9 today despite transfusion of 2 units PRBC yesterday. Ordered an additional 1 unit PRBC today. Ferrous sulfate 325 mg PO BID continued GI consulted and appreciate recommendations. EGD and Colonoscopy without acute bleeding LDH within normal limits and Haptoglobin pending r/o hemolytic anemia. (3) Witnessed seizure-like activity: Code(s): R56.9 - Unspecified convulsions Status: Acute Assessment and Plan: Most likely due to patient's reported episodes of hypoglycemia. Will monitor neurologic status closely. Neurology was consulted in the ER but given that the patient has likely been having hypoglycemia. Hold EEG, MRI and Neuro consult for now that was previously ordered. Continue Accu-Cheks q.4 hours overnight. monitor on control system manager for seizure activity. No seizure activity noted this admission. MRI brain negative. (4) GERD (gastroesophageal reflux disease): Qualifiers: Esophagitis presence: esophagitis presence not specified Qualified Code(s): K21.9 - Gastro-esophageal reflux disease without esophagitis Code(s): K21.9 - Gastro-esophageal reflux disease without esophagitis Status: Acute Assessment and Plan: Epigastric pain and burning chest pain following eating reported on 12/09/21. Improved after GI cocktail and PPI therapy started. Persistent anemia despite transfusion. No melena, hematochezia, or hematemesis. Change to Protonix 40 mg IV BID. GI consulted and appreciate recommendations. (5) Headache: Qualifiers: Headache chronicity pattern: episodic headache Headache type: unspecified Intractability: not intractable Qualified Code(s): R51.9 - Headache, unspecified Code(s): R51.9 - Headache, unspecified Status: Acute Assessment and Plan: C/o headache, paresthesia to face that is similar to prior migraines. No aura. Continue Fioricet 1 tablet Q4 hours PRN headache started. Check MRI brain Plan CODE STATUS: FULL CODE Disposition: home when medically stable. Time Spent With Patient Time with patient: 25 - 35 minutes Subjective Date/time seen:
[2021-12-11 16:16] LABS: Glucose Point of Care 52 mg/dl (65-105)
[2021-12-11] MEDS: predniSONE 5 MG TABLET PO (17:04)
[2021-12-11 17:44] LABS: Glucose Point of Care 104 mg/dl (65-105)
[2021-12-11 20:17] LABS: Glucose Point of Care 119 mg/dl (65-105)
[2021-12-11 22:51] LABS: Glucose Point of Care 229 mg/dl (65-105)
[2021-12-12] VITALS (8 sets, daily range): BP systolic 140–173; BP diastolic 57–92; PULSE 71–86; RESP 14–18; TEMP 36.5–36.9; O2SAT 98–100
[2021-12-12 00:42] LABS: Glucose Point of Care 59 mg/dl (65-105)
[2021-12-12 01:09] LABS: Glucose Point of Care 105 mg/dl (65-105)
[2021-12-12 04:27] LABS: Glucose Point of Care 82 mg/dl (65-105)
[2021-12-12 05:43] LABS: Hematocrit 28.7 % (37.0-47.0); Hemoglobin 7.8 g/dL (12.0-15.0); Mean Corpuscular HGB Conc 27.2 g/dl (32-36); Mean Corpuscular Hemoglobin 18.3 pg (26-34); Mean Corpuscular Volume 67.4 fl (80-100); Mean Platelet Volume 8.7 fl (7.4-10.4); Platelet Count Result 519 k/mm3 (150-375); Red Blood Count 4.26 M/mm3 (4.2-5.4); Red Cell Distribution Width 29.1 % (11.5-14.5); White Blood Count 8.4 K/mm3 (4.5-10.0)
[2021-12-12 06:01] LABS: Anion Gap 6 mmol/L (8-16); Blood Urea Nitrogen 6 mg/dL (7-17); Calcium 8.5 mg/dL (8.4-10.2); Carbon Dioxide 26 mmol/L (22-30); Chloride 105 mmol/L (98-107); Estimated CRCL calculation 106 ml/min; Estimated Glomerular Filt Rate > 60; Glucose 81 mg/dL (65-110); Potassium 3.5 mmol/L (3.4-5.0); Sodium 137 mmol/L (137-145)
[2021-12-12] MEDS: ACETAMINOPHEN/BUTALBITAL/CAFFEINE 325-50-40 MG TABLET (FIORICET) 1 TAB PO ×2 (06:58→13:09)
--- NOTE | 2021-12-12 07:48 | WPDGIPROGNO ---
Progress Note: A&P Assessment and Plan (1) History of gastric bypass: Onset Date: 08/2006 Code(s): Z98.84 - Bariatric surgery status Status: Acute Assessment and Plan: Gastric bypass well-healed at time of endoscopy. Continue frequent small meals. As previously suggested. (2) Iron deficiency anemia after gastrectomy: Code(s): K91.89 - Other postprocedural complications and disorders of digestive system; D50.8 - Other iron deficiency anemias Status: Acute Assessment and Plan: Iron deficiency anemia appears to be on the basis of previous gastric bypass. Colonoscopy an EGD otherwise unremarkable. She may malabsorb oral iron. Likely would benefit from parental iron intermittently. Primary care service should monitor CBC and iron levels. Supplemental iron would be beneficial if unable to improved with oral iron then parental iron suggested intermittently as an outpatient. Subjective Date/time seen: 12/12/21 07:48 Patient alert comfortable this morning. Denies abdominal pain. Tolerating diet. Review of Systems Review of Systems: Review of systems noncontributory. Exam Narrative: Physical exam reveals patient to be alert. Vital signs stable. HEENT exam reveals no icterus. Lungs are clear. Heart without murmur. Abdomen soft and nontender. Objective Data Vital Signs Vital Signs: Vital Signs - 24 hr 12/11/21 08:00 12/11/21 08:00 12/11/21 10:04 Temperature 98.3 F 97.8 F Pulse Rate 60 59 L Respiratory Rate 16 16 Blood Pressure 133/67 140/63 Pulse Oximetry 98 97 99 Oxygen Delivery Room Air Room Air 12/11/21 08:00 12/11/21 12:12 12/11/21 12:22 Temperature Pulse Rate 69 81 76 Respiratory Rate 18 14 Blood Pressure 104/64 136/63 Pulse Oximetry 98 97 Oxygen Delivery Room Air Room Air 12/11/21 12:32 12/11/21 12:45 12/11/21 16:00 Temperature 98.2 F Pulse Rate 70 60 92 Respiratory Rate 13 16 Blood Pressure 135/78 130/72 Pulse Oximetry 97 100 Oxygen Delivery Room Air 12/11/21 16:00 12/11/21 21:42 12/11/21 20:00 Temperature 98.0 F 97.8 F Pulse Rate 62 67 76 Respiratory Rate 16 16 Blood Pressure 128/74 140/75 Pulse Oximetry 100 100 Oxygen Delivery 12/12/21 00:17 12/12/21 00:00 12/12/21 04:00 Temperature 97.7 F Pulse Rate 86 76 77 Respiratory Rate 16 Blood Pressure 145/57 H Pulse Oximetry 100 Oxygen Delivery 12/12/21 06:20 Temperature 98.2 F Pulse Rate 71 Respiratory Rate 14 Blood Pressure 141/86 H Pulse Oximetry 99 Oxygen Delivery Intake/Output Intake/Output: Intake & Output 12/09/21 12/10/21 12/11/21 12/12/21 23:59 23:59 23:59 23:59 Intake Total 2895 1695 3215 350 Output Total 2300 2300 3400 1200 Balance 860 -605 -185 -700 Meds/Results Medications: Active Medications Generic Name Dose Route Start Last Admin Trade Name Freq PRN Reason Stop Dose Admin Acetaminophen 650 mg 12/08/21 21:17 12/10/21 20:02 Acetaminophen 325 Mg Tablet PO 650 mg Q4H PRN Administration Mild Pain (1-3) or Fever Acetaminophen/Butalbital/Caffeine 1 tab 12/10/21 10:55 12/12/21 06:58 Acetaminophen/Butalbital/Caffeine 325-50-40 Mg Tablet (Fioricet) PO 1 tab Q4H PRN Administration Pain Rated 4-6 Dextrose 12.5 gm 12/09/21 07:12 Dextrose 50% 25 Gm/50 Ml Syringe IV PUSH PRN PRN Hypoglycemia Protocol Ferrous Sulfate 324 mg 12/09/21 08:00 12/11/21 17:04 Ferrous Sulfate 324 Mg Tablet PO 324 mg BIDWM FLAVIA Administration Glucagon 1 mg 12/09/21 07:12 Glucagon For Inj 1 Mg Vial IM PRN PRN Hypoglycemia Protocol Glucose 15 gm 12/09/21 07:12 12/11/21 16:10 Glucose Oral Gel 15 Gm Of Glucse In 37.5 Gm Tube PO 15 gm PRN PRN Administration Hypoglycemia Protocol Dextrose 1,000 mls @ 100 mls/hr 12/09/21 07:12 Dextrose 5% 1,000 Ml IVPB PRN PRN Hypoglycemia Protocol Ondansetron HCl 4 mg 12/08/21
--- NOTE | 2021-12-12 07:50 | WPDANESPN ---
Anes - Prog Note Post-Op Date/Time: 12/12/21 07:50 Cardiovascular status: normal Respiratory status: normal Airway patency: baseline Mental status: baseline Post-Op hydration status: normal Vital Signs: Last Vital Signs Temp 36.8 C 12/12/21 06:20 Pulse 71 12/12/21 06:20 Resp 14 12/12/21 06:20 BP 141/86 H 12/12/21 06:20 Pulse Ox 99 12/12/21 06:20 O2 Del Method Room Air 12/11/21 12:32 Pain Score (VAS): 0/10 I/O: Intake & Output 12/11/21 12/11/21 12/12/21 15:59 23:59 07:59 Intake Total 895 2020 350 Output Total 1600 1200 Balance 895 420 -850 Laboratory Tests 12/12/21 04:47 12/12/21 04:47 12/11/21 12/11/21 12/11/21 04:52 04:52 08:39 WBC RBC Hgb Hct MCV MCH MCHC RDW Plt Count MPV Haptoglobin Pending Sodium Potassium Chloride Carbon Dioxide Anion Gap BUN Creatinine Estim Creat Clear Calc Estimated GFR Glucose POC Capillary Glucose 92 Calcium Lactate Dehydrogenase 138 12/11/21 12/11/21 12/11/21 12:49 16:08 16:24 WBC RBC Hgb Hct MCV MCH MCHC RDW Plt Count MPV Haptoglobin Sodium Potassium Chloride Carbon Dioxide Anion Gap BUN Creatinine Estim Creat Clear Calc Estimated GFR Glucose POC Capillary Glucose 97 52 L* 104 Calcium Lactate Dehydrogenase 12/11/21 12/11/21 12/12/21 19:25 22:46 00:11 WBC RBC Hgb Hct MCV MCH MCHC RDW Plt Count MPV Haptoglobin Sodium Potassium Chloride Carbon Dioxide Anion Gap BUN Creatinine Estim Creat Clear Calc Estimated GFR Glucose POC Capillary Glucose 119 H 229 H 59 L* Calcium Lactate Dehydrogenase 12/12/21 12/12/21 12/12/21 01:05 04:22 04:47 WBC 8.4 RBC 4.26 Hgb 7.8 L Hct 28.7 L MCV 67.4 L MCH 18.3 L MCHC 27.2 L RDW 29.1 H Plt Count 519 H MPV 8.7 Haptoglobin Sodium Potassium Chloride Carbon Dioxide Anion Gap BUN Creatinine Estim Creat Clear Calc Estimated GFR Glucose POC Capillary Glucose 105 82 Calcium Lactate Dehydrogenase 12/12/21 04:47 WBC RBC Hgb Hct MCV MCH MCHC RDW Plt Count MPV Haptoglobin Sodium 137 Potassium 3.5 Chloride 105 Carbon Dioxide 26 Anion Gap 6 L BUN 6 L Creatinine 0.60 L Estim Creat Clear Calc 106 Estimated GFR > 60 Glucose 81 POC Capillary Glucose Calcium 8.5 Lactate Dehydrogenase Post-procedural complaints: none Patient Feedback: Patient satisfied with anesthetic care.
[2021-12-12] MEDS: FERROUS SULFATE 324 MG TABLET PO (08:18)
[2021-12-12] MEDS: predniSONE 5 MG TABLET PO (08:19)
[2021-12-12] MEDS: PANTOPRAZOLE SODIUM IV 40 MG VIAL IV PUSH (08:21)
[2021-12-12 08:45] LABS: Glucose Point of Care 100 mg/dl (65-105)
[2021-12-12 12:11] LABS: Glucose Point of Care 108 mg/dl (65-105)
--- NOTE | 2021-12-12 13:51 | PC.NURSE ---
On 12/12/21, the student, [Betzaida Guevara], provided care and completed [facility] documentation on this patient. I have reviewed the student's documentation and agree with the findings.
--- NOTE | 2021-12-12 16:48 | P.PNIM_ITS ---
Progress Note: A&P Assessment and Plan (1) Hypoglycemia: Code(s): E16.2 - Hypoglycemia, unspecified Status: Acute Assessment and Plan: Patient's glucose on arrival was 80 after she consumed a cookie. It was noted to be 38 mg/dL prior to this. She ate a turkey sandwich and chips in the ER and her glucose incresed to 150. history of bypass surgery (Kush-en-y procedure) in 2008 and heavy alcohol use. She describes low blood sugars following meals, suggesting postpradial hypoglycemia which may be late manifestation from bypass surgery. * Blood sugars stable today, 82-108 * Accu-Cheks Q 4 hours * hemoglobin A1c 5.5%. * Appreciate septic pump truck driver evaluation * abd US without evidence of insulinoma * cortisol 0.81, ACTH pending, and insulin autoantibodies pending. * Continue hypoglycemia protocol * Recommend frequent small meals. Will provide snacks in between meals * Continue physiologic dose prednisone 5 mg daily until evaluated by PCP and/or Endocrinology. (2) Acute on chronic anemia: Code(s): D64.9 - Anemia, unspecified Status: Acute Assessment and Plan: anemia is likely due to a combination of inadequate iron intake and or possible component of GI chronic losses given patient's history of prior gastric bypass procedure, GERD symptoms, and poor intake * Transfused a total of 3 units PRBC. Hemoglobin 7.8 today * IV Venofer during admission, will plan to transition to p.o. iron supplementation on discharge * Stool occult ordered and pending. * GI consulted and appreciate recommendations. EGD and Colonoscopy completed on 12/11 without acute bleeding * LDH within normal limits and Haptoglobin pending r/o hemolytic anemia. (3) Witnessed seizure-like activity: Code(s): R56.9 - Unspecified convulsions Status: Acute Assessment and Plan: Most likely due to patient's reported episodes of hypoglycemia. * No further issues during admission. * Neurology consulted in ED, but this was held as symptoms felt to be secondary to hypoglycemia. EEG also held. No need for further evaluation at this time * Continue Accu-Cheks q.4 hours * monitor on telemetry * Monitor for seizure activity. No seizure activity noted this admission. * MRI brain negative. (4) GERD (gastroesophageal reflux disease): Qualifiers: Esophagitis presence: esophagitis presence not specified Qualified Code(s): K21.9 - Gastro-esophageal reflux disease without esophagitis Code(s): K21.9 - Gastro-esophageal reflux disease without esophagitis Status: Acute Assessment and Plan: Epigastric pain and burning chest pain following eating reported on 12/09/21. * Improved after GI cocktail and PPI therapy started. * Continue Protonix 40 mg IV b.i.d. * Appreciate GI consultation (5) Headache: Qualifiers: Headache type: unspecified Headache chronicity pattern: episodic headache Intractability: not intractable Qualified Code(s): R51.9 - Headache, unspecified Code(s): R51.9 - Headache, unspecified Status: Acute Assessment and Plan: C/o headache, paresthesia to face that is similar to prior migraines. No aura. * Continue Fioricet 1 tablet Q4 hours PRN headache * Brain MRI normal (6) Phlebitis of left upper extremity: Code(s): I80.8 - Phlebitis and thrombophlebitis of other sites Status: Acute Assessment and Plan: Left upper extremity edema, erythema, tenderness at site of IV infiltration * Supportive care. Elevate extremity. Warm compresses * Ev
--- NOTE | 2021-12-12 16:48 | PM.IMPN ---
Progress Note: A&P Assessment and Plan (1) Hypoglycemia: Code(s): E16.2 - Hypoglycemia, unspecified Status: Acute Assessment and Plan: Patient's glucose on arrival was 80 after she consumed a cookie. It was noted to be 38 mg/dL prior to this. She ate a turkey sandwich and chips in the ER and her glucose incresed to 150. history of bypass surgery (Kush-en-y procedure) in 2008 and heavy alcohol use. She describes low blood sugars following meals, suggesting postpradial hypoglycemia which may be late manifestation from bypass surgery. Blood sugars stable today, 82-108 Accu-Cheks Q 4 hours hemoglobin A1c 5.5%. Appreciate community health navigator evaluation abd US without evidence of insulinoma cortisol 0.81, ACTH pending, and insulin autoantibodies pending. Continue hypoglycemia protocol Recommend frequent small meals. Will provide snacks in between meals Continue physiologic dose prednisone 5 mg daily until evaluated by PCP and/or Endocrinology. (2) Acute on chronic anemia: Code(s): D64.9 - Anemia, unspecified Status: Acute Assessment and Plan: anemia is likely due to a combination of inadequate iron intake and or possible component of GI chronic losses given patient's history of prior gastric bypass procedure, GERD symptoms, and poor intake Transfused a total of 3 units PRBC. Hemoglobin 7.8 today IV Venofer during admission, will plan to transition to p.o. iron supplementation on discharge Stool occult ordered and pending. GI consulted and appreciate recommendations. EGD and Colonoscopy completed on 12/11 without acute bleeding LDH within normal limits and Haptoglobin pending r/o hemolytic anemia. (3) Witnessed seizure-like activity: Code(s): R56.9 - Unspecified convulsions Status: Acute Assessment and Plan: Most likely due to patient's reported episodes of hypoglycemia. No further issues during admission. Neurology consulted in ED, but this was held as symptoms felt to be secondary to hypoglycemia. EEG also held. No need for further evaluation at this time Continue Accu-Cheks q.4 hours monitor on manager medicaid for seizure activity. No seizure activity noted this admission. MRI brain negative. (4) GERD (gastroesophageal reflux disease): Qualifiers: Esophagitis presence: esophagitis presence not specified Qualified Code(s): K21.9 - Gastro-esophageal reflux disease without esophagitis Code(s): K21.9 - Gastro-esophageal reflux disease without esophagitis Status: Acute Assessment and Plan: Epigastric pain and burning chest pain following eating reported on 12/09/21. Improved after GI cocktail and PPI therapy started. Continue Protonix 40 mg IV b.i.d. Appreciate GI consultation (5) Headache: Qualifiers: Headache type: unspecified Headache chronicity pattern: episodic headache Intractability: not intractable Qualified Code(s): R51.9 - Headache, unspecified Code(s): R51.9 - Headache, unspecified Status: Acute Assessment and Plan: C/o headache, paresthesia to face that is similar to prior migraines. No aura. Continue Fioricet 1 tablet Q4 hours PRN headache Brain MRI normal (6) Phlebitis of left upper extremity: Code(s): I80.8 - Phlebitis and thrombophlebitis of other sites Status: Acute Assessment and Plan: Left upper extremity edema, erythema, tenderness at site of IV infiltration Supportive care. Elevate extremity. 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 She re
[2021-12-12 17:51] LABS: Glucose Point of Care 94 mg/dl (65-105)
[2021-12-12] MEDS: IRON SUCROSE COMPLEX 200 MG in SODIUM CHLORIDE 0.9% IV 50 ML 120 MG IVPB (18:36)
[2021-12-12] MEDS: ACETAMINOPHEN 325 MG TABLET 650 MG PO (20:42)
[2021-12-12 21:50] LABS: Glucose Point of Care 78 mg/dl (65-105)
[2021-12-13] VITALS: BP 151/85; PULSE 74; PULSE 78; RESP 20; TEMP 36.5; O2SAT 96
[2021-12-13] MEDS: PANTOPRAZOLE SODIUM IV 40 MG VIAL IV PUSH ×2 (00:09→10:06)
[2021-12-13] MEDS: DOCUSATE SODIUM 100 MG CAPSULE PO (00:10)
[2021-12-13 03:10] LABS: Glucose Point of Care 111 mg/dl (65-105)
[2021-12-13 03:50] LABS: Glucose Point of Care 101 mg/dl (65-105)
[2021-12-13 04:00] VITALS: BP 143/82; PULSE 74; PULSE 80; RESP 20; TEMP 36.4; O2SAT 100
[2021-12-13 06:08] LABS: Hematocrit 31.4 % (37.0-47.0); Hemoglobin 8.7 g/dL (12.0-15.0); Mean Corpuscular HGB Conc 27.7 g/dl (32-36); Mean Corpuscular Hemoglobin 19.5 pg (26-34); Mean Corpuscular Volume 70.2 fl (80-100); Mean Platelet Volume 8.7 fl (7.4-10.4); Platelet Count Result 488 k/mm3 (150-375); Red Blood Count 4.47 M/mm3 (4.2-5.4); Red Cell Distribution Width 30.5 % (11.5-14.5); White Blood Count 7.6 K/mm3 (4.5-10.0)
[2021-12-13 06:22] LABS: Anion Gap 10 mmol/L (8-16); Blood Urea Nitrogen 6 mg/dL (7-17); Calcium 8.7 mg/dL (8.4-10.2); Carbon Dioxide 27 mmol/L (22-30); Chloride 102 mmol/L (98-107); Estimated CRCL calculation 106 ml/min; Estimated Glomerular Filt Rate > 60; Glucose 95 mg/dL (65-110); Potassium 3.4 mmol/L (3.4-5.0); Sodium 139 mmol/L (137-145)
[2021-12-13 08:00] VITALS: PULSE 65
[2021-12-13 09:22] LABS: Glucose Point of Care 104 mg/dl (65-105)
[2021-12-13] MEDS: predniSONE 5 MG TABLET PO (10:06)
[2021-12-13] MEDS: ACETAMINOPHEN 325 MG TABLET 650 MG PO (10:19)
[2021-12-13 12:00] VITALS: PULSE 65
[2021-12-13 12:37] LABS: Glucose Point of Care 105 mg/dl (65-105)
[2021-12-13] MEDS: polyethylene glycoL 3350 17 GM POWD.PACK PO (12:48)
--- NOTE | 2021-12-13 13:34 | PC.NURSE ---
On 12/13/21, the student, [Destini Jones], provided care and completed [facility] documentation on this patient. I have reviewed the student's documentation and agree with the findings.
[2021-12-13 13:51] LABS: Adrenocorticotropic Hormone 19 pg/mL (6-50)
--- NOTE | 2021-12-13 13:52 | PM.DS ---
DS: Admitting Diagnosis Discharge Date 12/13/2021 Admitting Diagnosis Acute hypoglycemia DS: Discharge Diagnosis Discharge Diagnosis (1) Hypoglycemia: Code(s): E16.2 - Hypoglycemia, unspecified Status: Acute Assessment and Plan: Patient's glucose on arrival was 80 after she consumed a cookie. It was noted to be 38 mg/dL prior to this. She ate a turkey sandwich and chips in the ER and her glucose incresed to 150. history of bypass surgery (Kush-en-y procedure) in 2008 and heavy alcohol use. She describes low blood sugars following meals, suggesting postpradial hypoglycemia which may be late manifestation from bypass surgery. Managed during admissions with Accu-Cheks q.4 hours. Hemoglobin A1c was noted to be 5.5%. Abdominal ultrasound completed with no evidence of insulinoma. Cortisol level 0.81, acth an insulin on antibiotics pending at time of discharge. She was started on prednisone 5 mg daily which she will continue until she is evaluated by her PCP and/or endocrinology. She was also seen by dietitian during hospitalization. Recommended the patient eat frequent, small meals with snacks in between meals. (2) Acute on chronic anemia: Code(s): D64.9 - Anemia, unspecified Status: Acute Assessment and Plan: Anemia is likely due to a combination of inadequate iron intake and or possible component of GI chronic losses given patient's history of prior gastric bypass procedure, GERD symptoms, and poor intake. Transfused a total of 3 units pRBC during admission. Received IV Venofer during admission and will continue with p.o. iron supplementation. Stool occult blood test was ordered but patient unable to give sample. She was seen in consultation by GI and had EGD and colonoscopy completed on 12/11 without any signs of acute bleeding. LDH and haptoglobin within normal limits. H&H remained stable following transfusion. (3) Witnessed seizure-like activity: Code(s): R56.9 - Unspecified convulsions Status: Acute Assessment and Plan: Most likely due to patient's reported episodes of hypoglycemia. No further issues during admission. Neurology was initially consulted while patient was in the ED, but this was not completed as symptoms were felt to be secondary to hypoglycemia. Brain MRI was negative. No need for further neurologic evaluation at this time. See plan above for hypoglycemia. (4) GERD (gastroesophageal reflux disease): Qualifiers: Esophagitis presence: esophagitis presence not specified Qualified Code(s): K21.9 - Gastro-esophageal reflux disease without esophagitis Code(s): K21.9 - Gastro-esophageal reflux disease without esophagitis Status: Acute Assessment and Plan: Epigastric pain and burning chest pain following eating reported on 12/09/21. Improved after GI cocktail and PPI therapy started. Continue p.o. Protonix 40 mg daily (5) Headache: Qualifiers: Headache type: unspecified Headache chronicity pattern: episodic headache Intractability: not intractable Qualified Code(s): R51.9 - Headache, unspecified Code(s): R51.9 - Headache, unspecified Status: Resolved Assessment and Plan: C/o headache, paresthesia to face that is similar to prior migraines. No aura. Brain MRI without any acute findings. She did have improvement with Fioricet. Headache resolved. (6) Phlebitis of left upper extremity: Code(s): I80.8 - Phlebitis and thrombophlebitis of other sites Status: Acute Assessment and Plan: Left upper extremity edema, erythema, tenderness noted at site of IV infiltration. Supportive care provided. Continue to elevate extremity and apply warm compresses. Venous Doppler of upper extremity showed no evidence of DVT but did reveal superficial thrombosis in the left basilic and cephalic veins. DS: Summary Hospital Course Hospital Course: Date of admission: 12/08/2021 D
[2021-12-16 02:26] LABS: Haptoglobin 150 mg/dL (43-212)
== END 2021-12-13 15:05 | disposition home or self-care (01) | DRG 641 ==
LOC: ANHED 21:27 → ANH2MED 22:07
PROVIDERS: Internal Medicine Gastroenterology; Nurse Practitioner Family; Admitting Provider Internal Medicine; Emergency Provider Nurse Practitioner Family; Visit Provider Physician Assistant
PROC: 0DJ08ZZ Inspection of Upper Intestinal Tract, Via Natural or Artificial Opening Endoscopic (ICD-10-PCS; CPT 43235; principal; 2021-12-11 10:45)
DX: E16.2 Hypoglycemia, unspecified (principal); K91.2 Postsurgical malabsorption, not elsewhere classified; I82.612 Acute embolism and thrombosis of superficial veins of left upper extremity; T80.89XA Other complications following infusion, transfusion and therapeutic injection, initial encounter; I80.8 Phlebitis and thrombophlebitis of other sites; Y82.8 Other medical devices associated with adverse incidents; D50.8 Other iron deficiency anemias; R56.9 Unspecified convulsions; K64.8 Other hemorrhoids; K21.9 Gastro-esophageal reflux disease without esophagitis; R51.9 Headache, unspecified; G47.33 Obstructive sleep apnea (adult) (pediatric); F31.9 Bipolar disorder, unspecified; F44.81 Dissociative identity disorder; F41.9 Anxiety disorder, unspecified; F17.210 Nicotine dependence, cigarettes, uncomplicated; Z28.21 Immunization not carried out because of patient refusal; Z28.310 Unvaccinated for COVID-19; Z86.16 Personal history of COVID-19; Z98.84 Bariatric surgery status
CPT/HCPCS: 36415; 36430; 70450; 70551; 76700; 80048; 80053; 80307; 81001; 81025; 82024; 82533; 82607; 82728; 82746; 82948; 83010; 83036; 83540; 83550; 83615; 83690; 84443; 84484; 85014; 85018; 85025; 85027; 85046; 86337; 86850; 86900; 86901; 86920; 93005; 93971; 96361; 96365; 96366; 96374; 96375; 99285; A9270; C9113; G0378; J1756; J2001; J2060; J2405; J2704; J7030; J7050; J7120; J7512; P9016

== ENCOUNTER 2022-07-29 10:38 | Emergency (ER) | payer MEDICARE, SELFPAY ==
--- NOTE | 2022-07-29 10:44 | ED.NECK ---
HPI - Neck Pain/Injury General Chief Complaint: Neck Pain/Injury Stated Complaint: Pain in neck down to shoulder Time Seen by Provider: 07/29/22 10:44 Source: patient Mode of arrival: ambulatory Limitations: no limitations History of Present Illness HPI Narrative: Shiela is a 46-year-old female patient presenting to the clinic today with complaints of neck pain radiating into her shoulder times 1 month. She reports yesterday her symptoms got worse. She reports that she is now unable to turn her neck side to side. Rates the pain sitting there and 8/10 and 10/10 when trying to turn her neck. Reports that the pain is not radiating down her arm. Pain is over the left lateral cervical spine and to the top of the shoulder Related Data Allergies Allergy/AdvReac Type Severity Reaction Status Date / Time No Known Allergies Allergy Verified 07/29/22 10:50 Review of Systems Review of Systems: Pertinent positives per HPI. Patient denies any fever, chills, rash, headache, visual changes, dizziness, cough, shortness of breath, chest pain, palpitations, nausea, vomiting, diarrhea, constipation, abdominal pain, or any urinary issues. [facility] Past Medical History Medical History Anxiety and depression Bipolar disorder Iron deficiency anemia after gastrectomy Methamphetamine abuse Multiple personality disorder Obstructive sleep apnea Does not use CPAP but had polysomnogram in 2007 recommending CPAP of 11 Surgical History Surgical History History of appendectomy (1992) History of gastric bypass (08/2006) Pre bypass weight was 320 lb History of tonsillectomy and adenoidectomy (~1990) History of tubal ligation (~2001) S/P foot surgery, right (05/2005) Plantar fascial release and excision of right calcaneal spur S/P right rotator cuff repair (09/2015) Family History Family History Father COPD (chronic obstructive pulmonary disease) Peripheral vascular disease Myocardial infarction, Onset Age: 62 Heart disease Obesity Sibling Alcoholism Mother Obesity Social History Social History Social History: She works at a local [employer]. She reports that she smokes a pack of cigarettes per day on the days that she drinks. She thinks that she has smoked up to a pack of cigarettes per day on and off since she was 15 years old with up to around 20 pack per year smoking history. She drinks approximately 5 beers in 5 shots a day 3-5 days a week. She has a history of both cocaine and IV methamphetamine use. She last used cocaine 2 months ago and methamphetamines approximately 1 year ago. She smokes marijuana frequently. She has 1 daughter. Years smoked: 20 Smoking status: Current some day smoker Tobacco type: cigarettes Alcohol intake: current Drinks per week: 36 Substance use: former Substance use type: former substance user, marijuana, crack/cocaine and methamphetamine Other substance usage details: marijuana a few days ago/2months ago cocaine Last use: 1 year ago Lack of Transportation: No Lack of Food: Never True Current Housing: I Have Housing Concerned About Future Housing: No Difficulty Paying Gas/Electric Bills: No Difficulty Paying for Meds: No Currently Unemployed: No Difficulty w/ Childcare or Family Care: No Gender identity (if verbalized by the patient): Female Spiritual care concerns: No Comments At the time of my signature, I reviewed and agree with the nursing past medical, surgical, social, and family history. There is no relevant family history pertinent to the patient complaint. Exam Narrative: General: Well-developed, well nourished, in no apparent distress Head: Normocephalic, atraumatic. Cardio: Regu
[2022-07-29 10:51] VITALS: BP 143/85; PULSE 103; RESP 14; TEMP 37.1; O2SAT 99
[2022-07-29] MEDS: KETOROLAC (*BKC) 60 MG/2 ML VIAL IM (11:08)
== END 2022-07-29 11:40 | disposition home or self-care (01) ==
PROVIDERS: Emergency Provider Nurse Practitioner Family; PCP Family Medicine
DX: S16.1XXA Strain of muscle, fascia and tendon at neck level, initial encounter (principal); X58.XXXA Exposure to other specified factors, initial encounter
CPT/HCPCS: 96372; 99213; G0463; J1885

== ENCOUNTER 2022-08-15 04:44 | Emergency (ER) | payer MEDICARE, SELFPAY ==
[2022-08-15 04:53] VITALS: BP 119/59; PULSE 125; RESP 20; TEMP 37.1; O2SAT 96
[2022-08-15 05:46] LABS: Basophils Percent Auto 0.3 % (0.2-1.2); Eosinophils Absolute Auto 0.1 K/mm3 (0-0.3); Eosinophils Percent Auto 0.6 % (0-4.4); Hematocrit 44.4 % (37.0-47.0); Hemoglobin 14.2 g/dL (12.0-15.0); Immature Granulocyte Absolute 0.04 K/mm3 (0.00-0.031); Immature Granulocyte Percent A 0.5 % (0-0.5); Lymphocytes Absolute Auto 0.58 K/mm3 (0.9-3.2); Lymphocytes Percent Auto 6.5 % (18.3-44.2); Mean Corpuscular Hemoglobin 29.3 pg (26-34); Mean Corpuscular Volume 91.5 fl (80-100); Mean Platelet Volume 9.6 fl (7.4-10.4); Monocytes Absolute Auto 0.6 K/mm3 (0.1-0.6); Monocytes Percent Auto 7.1 % (2.6-8.5); Neutrophils Absolute Auto 7.6 K/mm3 (1.3-6.7); Platelet Count Result 244 k/mm3 (150-375); Red Blood Count 4.85 M/mm3 (4.2-5.4); Red Cell Distribution Width 13.4 % (11.5-14.5); White Blood Count 8.9 K/mm3 (4.5-10.0)
[2022-08-15 05:56] LABS: Alanine Aminotransferase 64 U/L (6-35); Albumin Level 4.2 g/dL (3.5-5.1); Alkaline Phosphatase 183 U/L (38-126); Anion Gap 8 mmol/L (8-16); Aspartate Amino Transferase 122 U/L (14-36); Bilirubin,Total 0.8 mg/dL (0.2-1.3); Blood Urea Nitrogen 12 mg/dL (7-17); Calcium 8.8 mg/dL (8.4-10.2); Carbon Dioxide 25 mmol/L (22-30); Chloride 101 mmol/L (98-107); Estimated CRCL calculation 112 ml/min; Estimated Glomerular Filt Rate > 60; Glucose 116 mg/dL (65-110); Lipase 18 U/L (23-300); Potassium 3.3 mmol/L (3.4-5.0); Sodium 134 mmol/L (137-145)
--- NOTE | 2022-08-15 06:05 | ECG_ITS ---
Measurements Intervals [place] Rate: 108 P: 73 MT: 131 QRS: 48 QRSD: 98 T: 46 QT: 314 QTc: 421 Interpretive Statements SINUS TACHYCARDIA POSSIBLE LEFT ATRIAL ENLARGEMENT [-0.1mV P WAVE IN V1/V2] POSSIBLE RIGHT VENTRICULAR CONDUCTION DELAY [RSR (QR) IN V1/V2] ABNORMAL RHYTHM ECG COMPARED TO ECG 12/08/2021 19:13:43 NO SIGNIFICANT CHANGES Electronically Signed On 08-15-2022 13:22:27 CDT by Nikki Mullins M.D.
--- NOTE | 2022-08-15 06:10 | ED.GENADULT ---
HPI - General Adult General Chief complaint: Abdominal Pain <Jeronimo Rascon MD - Last Filed: 08/15/22 07:30> Stated complaint: my kidneys hurt <Jeronimo Rascon MD - Last Filed: 08/15/22 07:30> Time Seen by Provider: 08/15/22 05:18 <Jeronimo Rascon MD - Last Filed: 08/15/22 07:30> History of Present Illness HPI narrative: This is a 39-year-old female presenting ED with a chief complaint of abdominal pain. Patient says that she has been having abdominal pain for the last 2 days. Pain started when she woke up, says it feels like being punched in stomach, is diffuse throughout her abdomen back, is 8 out 10 intensity and constant. She has never experienced symptoms like this before although she has said well that sometime she gets like this when she has abdominal pain. She said that heating pack to help improved it and rubbing it sometimes helps. No exacerbating symptoms. She did have an episode of nausea and vomiting and episode of diarrhea 2 days ago. She denies fever chills chest pain difficulty breathing urinary symptoms or vaginal discharge or irritation. Patient is bipolar, she uses marijuana. <Jeronimo Rascon MD - Last Filed: 08/15/22 07:30> Related Data Allergies/adverse reactions: Allergies Allergy/AdvReac Type Severity Reaction Status Date / Time No Known Allergies Allergy Verified 07/29/22 10:50 <Jeronimo Rascon MD - Last Filed: 08/15/22 07:30> [facility] Past Medical History Medical History: Medical History Anxiety and depression Bipolar disorder Iron deficiency anemia after gastrectomy Methamphetamine abuse Multiple personality disorder Obstructive sleep apnea Does not use CPAP but had polysomnogram in 2007 recommending CPAP of 11 <Jeronimo Rascon MD - Last Filed: 08/15/22 07:30> Surgical History Surgical History: Surgical History History of appendectomy (1992) History of gastric bypass (08/2006) Pre bypass weight was 320 lb History of tonsillectomy and adenoidectomy (~1990) History of tubal ligation (~2001) S/P foot surgery, right (05/2005) Plantar fascial release and excision of right calcaneal spur S/P right rotator cuff repair (09/2015) <Jeronimo Rascon MD - Last Filed: 08/15/22 07:30> Family History Family History: Family History Father COPD (chronic obstructive pulmonary disease) Peripheral vascular disease Myocardial infarction, Onset Age: 62 Heart disease Obesity Sibling Alcoholism Mother Obesity <Jeronimo Rascon MD - Last Filed: 08/15/22 07:30> Social History Social History: Social History Social History: She works at a [employer]. She reports that she smokes a pack of cigarettes per day on the days that she drinks. She thinks that she has smoked up to a pack of cigarettes per day on and off since she was 15 years old with up to around 20 pack per year smoking history. She drinks approximately 5 beers in 5 shots a day 3-5 days a week. She has a history of both cocaine and IV methamphetamine use. She last used cocaine 2 months ago and methamphetamines approximately 1 year ago. She smokes marijuana frequently. She has 1 daughter. Years smoked: 20 Smoking status: Current some day smoker Tobacco type: cigarettes Alcohol intake: current Drinks per week: 36 Substance use: former Substance use type: former substance user, marijuana, crack/cocaine and methamphetamine Other substance usage details: marijuana a few days ago/2months ago cocaine Last use: 1 year ago Lack of Transportation: No Lack of Food: Never True Current Housing: I Have Housing Concerned About Future Housing: No Difficulty Paying Gas/Electric Bills: No Difficulty Pay
[2022-08-15] MEDS: ONDANSETRON INJ 4 MG/2 ML VIAL IV PUSH (06:20)
[2022-08-15] MEDS: FAMOTIDINE 20 MG/2 ML VIAL IV PUSH (06:20)
[2022-08-15] MEDS: SODIUM CHLORIDE 0.9% IV 2,000 ML 999 ML IV CONT (06:21)
[2022-08-15] MEDS: POTASSIUM CHLORIDE 20 MEQ PACKET (FOR LIQUID) 40 MEQ PO (06:31)
[2022-08-15] MEDS: HALOPERIDOL LACTATE 5 MG/ML VIAL IM (06:33)
[2022-08-15 06:40] VITALS: BP 109/58; PULSE 107; RESP 17; O2SAT 100
[2022-08-15 06:54] LABS: Ethanol < 10 mg/dL (<10)
[2022-08-15 07:01] LABS: Glucose Point of Care 130 mg/dl (65-105)
[2022-08-15 08:48] LABS: Appearance Urine Cloudy (Clear); Bacteria Urine 4+ /hpf; Bilirubin Urine Negative (Negative); Blood Urine 1+ (Negative); Color Urine Yellow (Yellow); Glucose Urine UA Negative (Negative); Ketones Urine 1+ mg/dL (Negative); Leukocyte Esterase Ur 1+ LEU/UL (Negative); Nitrate Urine Positive (Negative); Protein Urine 2+ mg/dL (Negative); Specific Grav Ur 1.016 (1.001-1.035); Squamous Epithelial Cell Urine Occasional /hpf (Few); WBC Urine 21-50 /hpf; pH Urine 7.5 (5.0-9.0)
[2022-08-15 08:50] LABS: Add Urine Microscopic? YES
[2022-08-15 09:18] VITALS: BP 125/68; PULSE 114; RESP 20; O2SAT 97
[2022-08-15 10:05] LABS: Barbiturate Screen Urine Negative (Negative); Benzodiazepines Screen Urine Negative (Negative)
[2022-08-15 10:09] LABS: Cocaine Screen Urine Negative (Negative)
[2022-08-15 10:10] LABS: Cannabinoid Screen Urine Negative (Negative); Methadone Screen Urine Negative (Negative); Opiate Screen Urine Negative (Negative); Phencyclidine Screen Urine Negative (Negative)
--- NOTE | 2022-08-15 11:10 | PC.NURSE ---
report received from Mukesh SUBRAMANIAN at this time including history and physical and plan of care
== END 2022-08-15 11:29 | disposition home or self-care (01) ==
PROVIDERS: Emergency Provider Emergency Medicine
DX: N39.0 Urinary tract infection, site not specified (principal); R10.9 Unspecified abdominal pain; G47.33 Obstructive sleep apnea (adult) (pediatric); F17.210 Nicotine dependence, cigarettes, uncomplicated; Z98.84 Bariatric surgery status; Z79.52 Long term (current) use of systemic steroids; R94.31 Abnormal electrocardiogram [ECG] [EKG]; R00.0 Tachycardia, unspecified
CPT/HCPCS: 36415; 80053; 80307; 81001; 81025; 82948; 83690; 85025; 87077; 87086; 87186; 93005; 96361; 96372; 96374; 96375; 99284; A9270; J1630; J2405; J7030

== ENCOUNTER 2022-11-24 20:11 | Emergency (ER) | payer MEDICARE, SELFPAY ==
--- NOTE | ~2022-11-24 | CT_ITS ---
EXAMINATION: CT brain wo con DATE: 11/25/2022 01:24 INDICATION: Seizure. TECHNIQUE: Computed tomography (CT) of the head was performed without intravenous contrast. The mA wa s adjusted according to patient size. Iterative reconstruction technique was employed. The dose-lengt h product was 605.33 mGy-cm. COMPARISON: Head CT 12/08/2021, brain MRI 12/11/2021 FINDINGS: There is no intracranial hemorrhage, acute infarction, or abnormal intracranial mass lesion . The ventricles are normal in size. The paranasal sinuses are clear. The mastoid air cells are shannan l. The orbits are normal. IMPRESSION: 1. Normal brain. Reviewed, dictated and finalized at location E. IMPRESSION: 1. Normal brain.
[2022-11-24 20:15] VITALS: BP 131/78; PULSE 79; RESP 16; TEMP 36.7; O2SAT 100
[2022-11-24 23:32] VITALS: BP 99/54; PULSE 59; RESP 16; O2SAT 100
[2022-11-25 00:53] VITALS: BP 102/60; PULSE 78; RESP 16; O2SAT 98
[2022-11-25 01:01] LABS: Basophils Absolute Auto 0.1 K/mm3 (0.0-0.1); Basophils Percent Auto 0.9 % (0.2-1.2); Eosinophils Absolute Auto 0.3 K/mm3 (0-0.3); Eosinophils Percent Auto 3.7 % (0-4.4); Hematocrit 38.7 % (37.0-47.0); Hemoglobin 12.1 g/dL (12.0-15.0); Immature Granulocyte Absolute 0.02 K/mm3 (0.00-0.031); Immature Granulocyte Percent A 0.3 % (0-0.5); Lymphocytes Absolute Auto 2.31 K/mm3 (0.9-3.2); Lymphocytes Percent Auto 33.9 % (18.3-44.2); Mean Corpuscular HGB Conc 31.3 g/dl (32-36); Mean Corpuscular Hemoglobin 28.7 pg (26-34); Mean Corpuscular Volume 91.7 fl (80-100); Monocytes Absolute Auto 0.5 K/mm3 (0.1-0.6); Monocytes Percent Auto 7.5 % (2.6-8.5); Neutrophils Absolute Auto 3.7 K/mm3 (1.3-6.7); Neutrophils Percent Auto 53.7 % (45.5-73.1); Platelet Count Result 262 k/mm3 (150-375); Red Blood Count 4.22 M/mm3 (4.2-5.4); Red Cell Distribution Width 14.2 % (11.5-14.5); White Blood Count 6.8 K/mm3 (4.5-10.0)
[2022-11-25 01:07] LABS: Appearance Urine Clear (Clear); Bacteria Urine 4+ /hpf; Bilirubin Urine Negative (Negative); Blood Urine Negative (Negative); Color Urine Yellow (Yellow); Glucose Urine UA Negative (Negative); Ketones Urine Trace mg/dL (Negative); Leukocyte Esterase Ur Trace LEU/UL (Negative); Nitrate Urine Positive (Negative); Non Pathogenic Casts 0-2; Protein Urine Negative (Negative); RBC Urine 0-2 /hpf (0-2); Specific Grav Ur 1.025 (1.001-1.035); Squamous Epithelial Cell Urine None seen /hpf (Few); WBC Urine 21-50 /hpf; pH Urine 5.5 (5.0-9.0)
[2022-11-25 01:12] LABS: Alanine Aminotransferase 17 U/L (6-35); Albumin Level 4.1 g/dL (3.5-5.1); Alkaline Phosphatase 61 U/L (38-126); Anion Gap 7 mmol/L (8-16); Aspartate Amino Transferase 27 U/L (14-36); Bilirubin,Total 0.3 mg/dL (0.2-1.3); Blood Urea Nitrogen 12 mg/dL (7-17); Carbon Dioxide 22 mmol/L (22-30); Chloride 109 mmol/L (98-107); Estimated CRCL calculation 125 ml/min; Estimated Glomerular Filt Rate > 60; Glucose 88 mg/dL (65-110); Potassium 3.5 mmol/L (3.4-5.0); Sodium 138 mmol/L (137-145)
[2022-11-25 01:15] LABS: Add Urine Microscopic? YES
--- NOTE | 2022-11-25 01:23 | ED.GENADULT ---
HPI - General Adult General Chief complaint: Anxiety Stated complaint: brain gets too excited , anxious Time Seen by Provider: 11/24/22 23:25 History of Present Illness HPI narrative: Patient brought to the emergency department by her significant other. She describes episodes that have been ongoing for the past 3 years. Normally occurring every other day. States that she has a sensation of falling forward and being able to hear everything that is around her but not respond to it. She says that normally she can stop herself from falling. She describes having neck pain at times from her head collapsing forward. Patient falls asleep at times during the history. However when she wakes up she twitches her hands when she talks. Her speech is also difficult to understand at times. She has not seen a physician for these episodes in the past. She states she does not have a primary care provider Related Data Allergies Allergy/AdvReac Type Severity Reaction Status Date / Time No Known Allergies Allergy Verified 11/24/22 20:22 Review of Systems Review of Systems: Review of systems negative except what is documented in the HPI [facility] Past Medical History Medical History Anxiety and depression Bipolar disorder Iron deficiency anemia after gastrectomy Methamphetamine abuse Multiple personality disorder Obstructive sleep apnea Does not use CPAP but had polysomnogram in 2007 recommending CPAP of 11 Surgical History Surgical History History of appendectomy (1992) History of gastric bypass (08/2006) Pre bypass weight was 320 lb History of tonsillectomy and adenoidectomy (~1990) History of tubal ligation (~2001) S/P foot surgery, right (05/2005) Plantar fascial release and excision of right calcaneal spur S/P right rotator cuff repair (09/2015) Family History Family History Father COPD (chronic obstructive pulmonary disease) Peripheral vascular disease Myocardial infarction, Onset Age: 62 Heart disease Obesity Sibling Alcoholism Mother Obesity Social History Social History Social History: She works at a local [employer]. She reports that she smokes a pack of cigarettes per day on the days that she drinks. She thinks that she has smoked up to a pack of cigarettes per day on and off since she was 15 years old with up to around 20 pack per year smoking history. She drinks approximately 5 beers in 5 shots a day 3-5 days a week. She has a history of both cocaine and IV methamphetamine use. She last used cocaine 2 months ago and methamphetamines approximately 1 year ago. She smokes marijuana frequently. She has 1 daughter. Years smoked: 20 Smoking status: Current some day smoker Tobacco type: cigarettes Alcohol intake: current Drinks per week: 36 Substance use: former Substance use type: former substance user, marijuana, crack/cocaine and methamphetamine Other substance usage details: marijuana a few days ago/2months ago cocaine Last use: 1 year ago Lack of Transportation: No Lack of Food: Never True Current Housing: I Have Housing Concerned About Future Housing: No Difficulty Paying Gas/Electric Bills: No Difficulty Paying for Meds: No Currently Unemployed: No Difficulty w/ Childcare or Family Care: No Gender identity (if verbalized by the patient): Female Spiritual care concerns: No Exam Narrative: GENERAL: Well-appearing, well-nourished, and in no acute distress. Anxious and twitching HEAD: Normocephalic, atraumatic. EYES: PERRLA and EOMI. ENT: Nares clear, no rhinorrhea or epistaxis. Mucous membranes moist. NECK: Supple. CHEST: Clear to auscultation. No respiratory distress. HEART: Regular rate and rhythm
[2022-11-25 01:25] LABS: Ethanol < 10 mg/dL (<10)
[2022-11-25 01:31] LABS: Barbiturate Screen Urine Negative (Negative); Benzodiazepines Screen Urine Negative (Negative)
[2022-11-25 01:35] LABS: Cannabinoid Screen Urine Negative (Negative); Cocaine Screen Urine Negative (Negative); Methadone Screen Urine Negative (Negative); Opiate Screen Urine Negative (Negative); Phencyclidine Screen Urine Negative (Negative)
[2022-11-25 01:57] LABS: Amphetamine Screen Urine Positive (Negative)
== END 2022-11-25 02:24 | disposition home or self-care (01) ==
PROVIDERS: Emergency Provider Emergency Medicine
DX: F15.10 Other stimulant abuse, uncomplicated (principal); N39.0 Urinary tract infection, site not specified; R56.9 Unspecified convulsions; G47.33 Obstructive sleep apnea (adult) (pediatric); F17.210 Nicotine dependence, cigarettes, uncomplicated; Z98.84 Bariatric surgery status
CPT/HCPCS: 36415; 70450; 80053; 80307; 81001; 85025; 87077; 87086; 87186; 99284

== ENCOUNTER 2022-12-01 19:56 | Emergency (ER) | payer MEDICARE, SELFPAY ==
[2022-12-01 19:58] VITALS: BP 120/73; PULSE 76; RESP 18; TEMP 36.6; O2SAT 100
--- NOTE | 2022-12-01 20:44 | PC.NURSE ---
Patient wheeled herself out of the ED outside to smoke. Patient wheels herself back in as well.
--- NOTE | 2022-12-01 21:41 | PC.NURSE ---
Patient wheeled out of ED waiting room again to go outside and smoke, patient has visitor with her at this time.
--- NOTE | 2022-12-01 21:58 | PC.NURSE ---
Patient back in waiting room with visitor from smoking outside.
[2022-12-01 22:20] VITALS: BP 125/76; PULSE 61; PULSE 66; RESP 17; TEMP 36.4; O2SAT 99
[2022-12-01 23:01] LABS: Basophils Absolute Auto 0.1 K/mm3 (0.0-0.1); Basophils Percent Auto 1.1 % (0.2-1.2); Eosinophils Absolute Auto 0.2 K/mm3 (0-0.3); Eosinophils Percent Auto 4.1 % (0-4.4); Hematocrit 41.7 % (37.0-47.0); Hemoglobin 12.7 g/dL (12.0-15.0); Immature Granulocyte Absolute 0.01 K/mm3 (0.00-0.031); Immature Granulocyte Percent A 0.2 % (0-0.5); Lymphocytes Absolute Auto 2.19 K/mm3 (0.9-3.2); Lymphocytes Percent Auto 41.2 % (18.3-44.2); Mean Corpuscular HGB Conc 30.5 g/dl (32-36); Mean Corpuscular Hemoglobin 28.5 pg (26-34); Mean Corpuscular Volume 93.7 fl (80-100); Mean Platelet Volume 9.9 fl (7.4-10.4); Monocytes Absolute Auto 0.3 K/mm3 (0.1-0.6); Monocytes Percent Auto 6.2 % (2.6-8.5); Neutrophils Absolute Auto 2.5 K/mm3 (1.3-6.7); Neutrophils Percent Auto 47.2 % (45.5-73.1); Platelet Count Result 253 k/mm3 (150-375); Red Blood Count 4.45 M/mm3 (4.2-5.4); Red Cell Distribution Width 14.3 % (11.5-14.5); White Blood Count 5.3 K/mm3 (4.5-10.0)
--- NOTE | 2022-12-01 23:07 | ED.GENADULT ---
HPI - General Adult General Chief complaint: Unspecified Stated complaint: AMS period. Time Seen by Provider: 12/01/22 22:26 Related Data Allergies Allergy/AdvReac Type Severity Reaction Status Date / Time No Known Allergies Allergy Verified 11/24/22 20:22 REPLACED BY [facility] Past Medical History Medical History Anxiety and depression Bipolar disorder Iron deficiency anemia after gastrectomy Methamphetamine abuse Multiple personality disorder Obstructive sleep apnea Does not use CPAP but had polysomnogram in 2007 recommending CPAP of 11 Surgical History Surgical History History of appendectomy (1992) History of gastric bypass (08/2006) Pre bypass weight was 320 lb History of tonsillectomy and adenoidectomy (~1990) History of tubal ligation (~2001) S/P foot surgery, right (05/2005) Plantar fascial release and excision of right calcaneal spur S/P right rotator cuff repair (09/2015) Family History Family History Father COPD (chronic obstructive pulmonary disease) Peripheral vascular disease Myocardial infarction, Onset Age: 62 Heart disease Obesity Sibling Alcoholism Mother Obesity Social History Social History Social History: She works at a local [employer]. She reports that she smokes a pack of cigarettes per day on the days that she drinks. She thinks that she has smoked up to a pack of cigarettes per day on and off since she was 15 years old with up to around 20 pack per year smoking history. She drinks approximately 5 beers in 5 shots a day 3-5 days a week. She has a history of both cocaine and IV methamphetamine use. She last used cocaine 2 months ago and methamphetamines approximately 1 year ago. She smokes marijuana frequently. She has 1 daughter. Years smoked: 20 Smoking status: Current some day smoker Tobacco type: cigarettes Alcohol intake: current Drinks per week: 36 Substance use: former Substance use type: former substance user, marijuana, crack/cocaine and methamphetamine Other substance usage details: marijuana a few days ago/2months ago cocaine Last use: 1 year ago Lack of Transportation: No Lack of Food: Never True Current Housing: I Have Housing Concerned About Future Housing: No Difficulty Paying Gas/Electric Bills: No Difficulty Paying for Meds: No Currently Unemployed: No Difficulty w/ Childcare or Family Care: No Gender identity (if verbalized by the patient): Female Spiritual care concerns: No Course Vital Signs Vital signs: Vital Signs Temperature 97.8 F 12/01/22 19:58 Pulse Rate 76 12/01/22 19:58 Respiratory Rate 18 12/01/22 19:58 Blood Pressure 120/73 12/01/22 19:58 Pulse Oximetry 100 12/01/22 19:58 Oxygen Delivery Room Air 12/01/22 19:58 Temperature 97.6 F 12/01/22 22:20 Pulse Rate 61 12/01/22 22:20 Respiratory Rate 17 12/01/22 22:20 Blood Pressure 125/76 12/01/22 22:20 Pulse Oximetry 99 12/01/22 22:20 Oxygen Delivery Room Air 12/01/22 19:58 Medical Decision Making Vital Signs Vital Signs: Vital Signs Temperature 97.8 F 12/01/22 19:58 Pulse Rate 76 12/01/22 19:58 Respiratory Rate 18 12/01/22 19:58 Blood Pressure 120/73 12/01/22 19:58 Pulse Oximetry 100 12/01/22 19:58 Oxygen Delivery Room Air 12/01/22 19:58 Temperature 97.6 F 12/01/22 22:20 Pulse Rate 61 12/01/22 22:20 Respiratory Rate 17 12/01/22 22:20 Blood Pressure 125/76 12/01/22 22:20 Pulse Oximetry 99 12/01/22 22:20 Oxygen Delivery Room Air 12/01/22 19:58 Lab Data 12/01/22 22:55 12/01/22 22:55 Labs: Lab Results 12/01/22 Range/Units 22:55 WBC 5.3 (4.5-10.0) K/mm3 RBC 4.45 (
--- NOTE | 2022-12-01 23:07 | ED.GENADULT ---
HPI - General Adult General Chief complaint: Unspecified Stated complaint: AMS period. Time Seen by Provider: 12/01/22 22:26 Source: patient and other (friend) Mode of arrival: ambulatory Limitations: no limitations History of Present Illness HPI narrative: patient is a 47 year old female who presents to the ED today ambulatory with a steady gait by private vehicle for evaluation of similar symptoms when she was just seen here the other day. Patient states that over the last 3 years has been happening when she is at work. She states that she just feels like she is going to fall forward and she feels like she is almost going to fall asleep. Patient states that she has not used drugs recently. This only happens when she is at work. she states she is under a lot of stres and that is making it worse. She states that she has not been able to see a primary or Neurology. Denies any chest pain, shortness a breath, dizziness, fever, chills, nausea, vomiting, numbness or tingling upper lower extremities, vision changes, recent head injury, or any other symptoms. Related Data Allergies Allergy/AdvReac Type Severity Reaction Status Date / Time No Known Allergies Allergy Verified 11/24/22 20:22 Review of Systems Review of Systems: CONSTITUTIONAL: Denies fever, chills, or sweats. EYES: Denies visual changes, redness, or discharge. ENT: Denies rhinorrhea, congestion, sore throat, or otalgia. CARDIOVASCULAR: Denies chest pain, palpitations, or edema. RESPIRATORY: Denies cough or dyspnea. GASTROINTESTINAL: Denies abdominal pain, nausea, vomiting, or diarrhea. GENITOURINARY: Denies dysuria or hematuria. SKIN: Denies rash or itching. MUSCULOSKELETAL: Denies back pain, joint pain, or myalgia. NEUROLOGIC: +episodes of nearly passing out/falling forward/paralysis as she describes it. denies weakness. PSYCHIATRIC: Denies anxiety or depression. All systems reviewed & are unremarkable except as noted in HPI and below PMFSH Past Medical History Medical History Anxiety and depression Bipolar disorder Iron deficiency anemia after gastrectomy Methamphetamine abuse Multiple personality disorder Obstructive sleep apnea Does not use CPAP but had polysomnogram in 2007 recommending CPAP of 11 Surgical History Surgical History History of appendectomy (1992) History of gastric bypass (08/2006) Pre bypass weight was 320 lb History of tonsillectomy and adenoidectomy (~1990) History of tubal ligation (~2001) S/P foot surgery, right (05/2005) Plantar fascial release and excision of right calcaneal spur S/P right rotator cuff repair (09/2015) Family History Family History Father COPD (chronic obstructive pulmonary disease) Peripheral vascular disease Myocardial infarction, Onset Age: 62 Heart disease Obesity Sibling Alcoholism Mother Obesity Social History Social History Social History: She works at a [employer]. She reports that she smokes a pack of cigarettes per day on the days that she drinks. She thinks that she has smoked up to a pack of cigarettes per day on and off since she was 15 years old with up to around 20 pack per year smoking history. She drinks approximately 5 beers in 5 shots a day 3-5 days a week. She has a history of both cocaine and IV methamphetamine use. She last used cocaine 2 months ago and methamphetamines approximately 1 year ago. She smokes marijuana frequently. She has 1 daughter. Years smoked: 20 Smoking status: Current some day smoker Tobacco type: cigarettes Alcohol intake: current Drinks per week: 36 Substance use: former Substance use type: former substance user, marijuana, crack/cocaine and methamphetamine Other substance u
[2022-12-01 23:12] LABS: Alanine Aminotransferase 21 U/L (6-35); Albumin Level 4.2 g/dL (3.5-5.1); Alkaline Phosphatase 58 U/L (38-126); Anion Gap 5 mmol/L (8-16); Aspartate Amino Transferase 28 U/L (14-36); Bilirubin,Total 0.3 mg/dL (0.2-1.3); Blood Urea Nitrogen 11 mg/dL (7-17); Calcium 8.5 mg/dL (8.4-10.2); Carbon Dioxide 27 mmol/L (22-30); Chloride 107 mmol/L (98-107); Estimated CRCL calculation 125 ml/min; Estimated Glomerular Filt Rate > 60; Glucose 88 mg/dL (65-110); Sodium 139 mmol/L (137-145)
[2022-12-01 23:51] VITALS: BP 131/74; PULSE 71; RESP 25; O2SAT 100
[2022-12-02 00:14] LABS: Appearance Urine Clear (Clear); Bilirubin Urine Negative (Negative); Blood Urine Negative (Negative); Color Urine Yellow (Yellow); Glucose Urine UA Negative (Negative); Ketones Urine Negative (Negative); Leukocyte Esterase Ur Negative LEU/UL (Negative); Nitrate Urine Negative (Negative); Protein Urine Negative (Negative); Specific Grav Ur 1.015 (1.001-1.035); Urobilinogen Urine 0.2 mg/dL (<2.0)
[2022-12-02 00:33] LABS: Add Urine Microscopic? NO
[2022-12-02 01:06] LABS: Barbiturate Screen Urine Negative (Negative); Benzodiazepines Screen Urine Negative (Negative)
[2022-12-02 01:34] VITALS: BP 108/78; PULSE 68; RESP 18; O2SAT 99
[2022-12-02 01:51] LABS: Cannabinoid Screen Urine Negative (Negative); Cocaine Screen Urine Negative (Negative); Methadone Screen Urine Negative (Negative); Opiate Screen Urine Negative (Negative); Phencyclidine Screen Urine Negative (Negative)
[2022-12-02 02:05] LABS: Amphetamine Screen Urine Negative (Negative)
== END 2022-12-02 01:35 | disposition home or self-care (01) ==
PROVIDERS: Emergency Provider Nurse Practitioner
DX: R41.840 Attention and concentration deficit (principal); F43.9 Reaction to severe stress, unspecified; F15.10 Other stimulant abuse, uncomplicated; G47.33 Obstructive sleep apnea (adult) (pediatric); F17.210 Nicotine dependence, cigarettes, uncomplicated; Z98.84 Bariatric surgery status
CPT/HCPCS: 36415; 80053; 80307; 81003; 85025; 99283

== ENCOUNTER 2023-01-22 13:48 | Emergency (ER) | payer MEDICARE, BC, SELFPAY ==
[2023-01-22 13:51] VITALS: BP 147/74; PULSE 103; RESP 18; TEMP 36.5; O2SAT 98
--- NOTE | 2023-01-22 15:53 | ED.GENADULT ---
HPI - General Adult General Chief complaint: Unspecified Stated complaint: std check Time Seen by Provider: 01/22/23 15:43 History of Present Illness HPI narrative: Patient is a 47-year-old female here with a 0 patient positive syphilis test. She states that her tested positive for syphilis and was treated so her primary care doctor tested her and found her to be positive. She is unsure of how long she had it. She denies any current lesions. Denies any vaginal bleeding or discharge. Denies any rash. Additionally she does note that she hit her face on a door when she tripped getting gas yesterday. She has a laceration to the jaw on the right side. Unsure of when her last tetanus shot was. She denies any pain with range of motion, no wounds within the mouth. Her teeth feel like they line up how they normally do. Related Data Allergies Allergy/AdvReac Type Severity Reaction Status Date / Time No Known Allergies Allergy Verified 01/22/23 15:38 Review of Systems Review of Systems: All systems reviewed & are unremarkable except as noted in HPI and below PMFSH Past Medical History Medical History Anxiety and depression Bipolar disorder Iron deficiency anemia after gastrectomy Methamphetamine abuse Multiple personality disorder Obstructive sleep apnea Does not use CPAP but had polysomnogram in 2007 recommending CPAP of 11 Surgical History Surgical History History of appendectomy (1992) History of gastric bypass (08/2006) Pre bypass weight was 320 lb History of tonsillectomy and adenoidectomy (~1990) History of tubal ligation (~2001) S/P foot surgery, right (05/2005) Plantar fascial release and excision of right calcaneal spur S/P right rotator cuff repair (09/2015) Family History Family History Father COPD (chronic obstructive pulmonary disease) Peripheral vascular disease Myocardial infarction, Onset Age: 62 Heart disease Obesity Sibling Alcoholism Mother Obesity Social History Social History Social History: She works at a [employer]. She reports that she smokes a pack of cigarettes per day on the days that she drinks. She thinks that she has smoked up to a pack of cigarettes per day on and off since she was 15 years old with up to around 20 pack per year smoking history. She drinks approximately 5 beers in 5 shots a day 3-5 days a week. She has a history of both cocaine and IV methamphetamine use. She last used cocaine 2 months ago and methamphetamines approximately 1 year ago. She smokes marijuana frequently. She has 1 daughter. Years smoked: 20 Smoking status: Current some day smoker Tobacco type: cigarettes Alcohol intake: current Drinks per week: 36 Substance use: former Substance use type: former substance user, marijuana, crack/cocaine and methamphetamine Other substance usage details: marijuana a few days ago/2months ago cocaine Last use: 1 year ago Lack of Transportation: No Lack of Food: Never True Current Housing: I Have Housing Concerned About Future Housing: No Difficulty Paying Gas/Electric Bills: No Difficulty Paying for Meds: No Currently Unemployed: No Difficulty w/ Childcare or Family Care: No Gender identity (if verbalized by the patient): Female Spiritual care concerns: No Exam Narrative: GENERAL: Well-appearing, well-nourished, and in no acute distress. HEAD: Normocephalic, 1 cm linear laceration over the lower jaw on the right side, no associated trismus, no internal wounds appreciated. This laceration is already well healing with a scab overlying and no surrounding erythema or discharge. EYES: PERRLA and EOMI. ENT: Nares clear. Mucous membranes moist. NECK: Supp
[2023-01-22] MEDS: TETANUS,DIPHTHERIA,AC PERTUSSIS ADULT (0.5 ML) BOOSTRIX IM (16:14)
[2023-01-22] MEDS: PENICILLIN G BENZATHINE 2,400,000 UNITS/4 ML SYRINGE 2400000 UNITS IM (16:14)
== END 2023-01-22 16:22 | disposition home or self-care (01) ==
PROVIDERS: Emergency Provider Student in an Organized Health Care Education/Training Program; PCP Emergency Medicine
DX: A53.0 Latent syphilis, unspecified as early or late (principal); S01.81XA Laceration without foreign body of other part of head, initial encounter; F17.210 Nicotine dependence, cigarettes, uncomplicated; Z23 Encounter for immunization; W01.198A Fall on same level from slipping, tripping and stumbling with subsequent striking against other object, initial encounter
CPT/HCPCS: 90471; 90715; 96372; 99283; J0561

== ENCOUNTER 2023-01-30 16:38 | Emergency (ER) | payer MEDICARE, BC, SELFPAY ==
[2023-01-30 17:12] VITALS: BP 145/100; PULSE 99; RESP 18; TEMP 36.6; O2SAT 99
--- NOTE | 2023-01-30 20:36 | ED.GENADULT ---
HPI - General Adult General Chief complaint: Unspecified Stated complaint: needs a second dose of shot for syphillis Time Seen by Provider: 01/30/23 20:29 Source: patient Mode of arrival: ambulatory Limitations: no limitations History of Present Illness HPI narrative: This is a 39-year-old female that presents to the emergency department for a penicillin shot. Reports she tested positive for syphilis. She is not currently having any symptoms. Her tested positive as well. She had her 1st penicillin shot here about a week ago. She called [facility] and was told to come back to the ER for another shot. Related Data Allergies Allergy/AdvReac Type Severity Reaction Status Date / Time No Known Allergies Allergy Verified 01/30/23 16:38 Review of Systems Review of Systems: CONSTITUTIONAL: Denies fever SKIN: Denies rash All systems reviewed & are unremarkable except as noted in HPI and below PMFSH Past Medical History Medical History Anxiety and depression Bipolar disorder Iron deficiency anemia after gastrectomy Methamphetamine abuse Multiple personality disorder Obstructive sleep apnea Does not use CPAP but had polysomnogram in 2007 recommending CPAP of 11 Surgical History Surgical History History of appendectomy (1992) History of gastric bypass (08/2006) Pre bypass weight was 320 lb History of tonsillectomy and adenoidectomy (~1990) History of tubal ligation (~2001) S/P foot surgery, right (05/2005) Plantar fascial release and excision of right calcaneal spur S/P right rotator cuff repair (09/2015) Family History Family History Father COPD (chronic obstructive pulmonary disease) Peripheral vascular disease Myocardial infarction, Onset Age: 62 Heart disease Obesity Sibling Alcoholism Mother Obesity Social History Social History Social History: She works at a [employer]. She reports that she smokes a pack of cigarettes per day on the days that she drinks. She thinks that she has smoked up to a pack of cigarettes per day on and off since she was 15 years old with up to around 20 pack per year smoking history. She drinks approximately 5 beers in 5 shots a day 3-5 days a week. She has a history of both cocaine and IV methamphetamine use. She last used cocaine 2 months ago and methamphetamines approximately 1 year ago. She smokes marijuana frequently. She has 1 daughter. Years smoked: 20 Smoking status: Current some day smoker Tobacco type: cigarettes Alcohol intake: current Drinks per week: 36 Substance use: former Substance use type: former substance user, marijuana, crack/cocaine and methamphetamine Other substance usage details: marijuana a few days ago/2months ago cocaine Last use: 1 year ago Lack of Transportation: No Lack of Food: Never True Current Housing: I Have Housing Concerned About Future Housing: No Difficulty Paying Gas/Electric Bills: No Difficulty Paying for Meds: No Currently Unemployed: No Difficulty w/ Childcare or Family Care: No Gender identity (if verbalized by the patient): Female Spiritual care concerns: No Exam Narrative: GENERAL: Disheveled, well-nourished, and in no acute distress. HEAD: Normocephalic, atraumatic. EYES: EOMI. CHEST: No respiratory distress. HEART: Regular rate EXTREMITIES: Normal range of motion. No edema. SKIN: Warm, dry, no rash. NEURO: No focal deficits. Alert and oriented x3. PSYCH: Normal mood and affect Course Course Emergency Course: Patient agrees with plan of care Vital Signs Vital signs: Vital Signs Temperature 97.9 F 01/30/23 17:12 Pulse Rate 99 01/30/23 17:12 Respiratory Rate 18
[2023-01-30] MEDS: PENICILLIN G BENZATHINE 2,400,000 UNITS/4 ML SYRINGE 2400000 UNITS IM (20:41)
[2023-01-30 20:54] VITALS: BP 146/97; PULSE 87; RESP 16; O2SAT 98
== END 2023-01-30 20:54 | disposition home or self-care (01) ==
LOC: ANHED 20:48
PROVIDERS: Emergency Provider Physician Assistant; PCP Emergency Medicine
DX: A53.9 Syphilis, unspecified (principal); G47.33 Obstructive sleep apnea (adult) (pediatric); F17.210 Nicotine dependence, cigarettes, uncomplicated; Z98.84 Bariatric surgery status
CPT/HCPCS: 96372; 99283; J0561

== ENCOUNTER 2023-02-06 08:58 | Emergency (ER) | payer MEDICARE, BC, SELFPAY ==
[2023-02-06 09:31] VITALS: BP 160/90; PULSE 110; RESP 16; TEMP 36.6; O2SAT 100
--- NOTE | 2023-02-06 09:38 | ED.GENADULT ---
HPI - General Adult General Chief complaint: Unspecified Stated complaint: 3rd shot for syphillis Time Seen by Provider: 02/06/23 09:36 Source: patient Mode of arrival: ambulatory Limitations: no limitations History of Present Illness HPI narrative: patient is a 39-year-old female that presents to the emergency department for a penicillin shot. Reports she tested positive for syphilis. She is not currently having any symptoms and never has had symptoms. Her tested positive as well. She had her 2nd penicillin shot here about a week ago. She called the Health Department and was told to come back to the ER for another shot. Related Data Allergies Allergy/AdvReac Type Severity Reaction Status Date / Time No Known Allergies Allergy Verified 01/30/23 16:38 Review of Systems Review of Systems: CONSTITUTIONAL: Denies fever, chills, or sweats. EYES: Denies visual changes, redness, or discharge. CARDIOVASCULAR: Denies chest pain, palpitations, or edema. RESPIRATORY: Denies cough or dyspnea. GASTROINTESTINAL: Denies abdominal pain, nausea, vomiting, or diarrhea. GENITOURINARY: Denies dysuria or hematuria. SKIN: Denies rash or itching. MUSCULOSKELETAL: Denies back pain, joint pain, or myalgia. NEUROLOGIC: Denies headache, numbness, or weakness. PSYCHIATRIC: Denies anxiety or depression. All systems reviewed & are unremarkable except as noted in HPI and below PMFSH Past Medical History Medical History Anxiety and depression Bipolar disorder Iron deficiency anemia after gastrectomy Methamphetamine abuse Multiple personality disorder Obstructive sleep apnea Does not use CPAP but had polysomnogram in 2007 recommending CPAP of 11 Surgical History Surgical History History of appendectomy (1992) History of gastric bypass (08/2006) Pre bypass weight was 320 lb History of tonsillectomy and adenoidectomy (~1990) History of tubal ligation (~2001) S/P foot surgery, right (05/2005) Plantar fascial release and excision of right calcaneal spur S/P right rotator cuff repair (09/2015) Family History Family History Father COPD (chronic obstructive pulmonary disease) Peripheral vascular disease Myocardial infarction, Onset Age: 62 Heart disease Obesity Sibling Alcoholism Mother Obesity Social History Social History Social History: She works at a local [employer]. She reports that she smokes a pack of cigarettes per day on the days that she drinks. She thinks that she has smoked up to a pack of cigarettes per day on and off since she was 15 years old with up to around 20 pack per year smoking history. She drinks approximately 5 beers in 5 shots a day 3-5 days a week. She has a history of both cocaine and IV methamphetamine use. She last used cocaine 2 months ago and methamphetamines approximately 1 year ago. She smokes marijuana frequently. She has 1 daughter. Years smoked: 20 Smoking status: Current some day smoker Tobacco type: cigarettes Alcohol intake: current Drinks per week: 36 Substance use: former Substance use type: former substance user, marijuana, crack/cocaine and methamphetamine Other substance usage details: marijuana a few days ago/2months ago cocaine Last use: 1 year ago Lack of Transportation: No Lack of Food: Never True Current Housing: I Have Housing Concerned About Future Housing: No Difficulty Paying Gas/Electric Bills: No Difficulty Paying for Meds: No Currently Unemployed: No Difficulty w/ Childcare or Family Care: No Gender identity (if verbalized by the patient): Female Spiritual care concerns: No Exam Narrative: GENERAL: patient sitting up on exam chair, overweight, slightly disheveled, and in no acute distre
[2023-02-06] MEDS: PENICILLIN G BENZATHINE 2,400,000 UNITS/4 ML SYRINGE 2400000 UNITS IM (10:31)
== END 2023-02-06 10:31 | disposition home or self-care (01) ==
LOC: ANHED 10:04
PROVIDERS: Emergency Provider Nurse Practitioner; PCP Emergency Medicine
DX: A53.9 Syphilis, unspecified (principal); R03.0 Elevated blood-pressure reading, without diagnosis of hypertension; G47.33 Obstructive sleep apnea (adult) (pediatric); F17.210 Nicotine dependence, cigarettes, uncomplicated; Z98.84 Bariatric surgery status
CPT/HCPCS: 96372; 99283; J0561

== ENCOUNTER 2023-04-01 14:45 | Emergency (ER) | payer MEDICARE, BC, SELFPAY ==
[2023-04-01 14:57] VITALS: BP 139/72; PULSE 95; RESP 20; TEMP 36.7; O2SAT 100
--- NOTE | 2023-04-01 15:47 | ED.WOUNDLAC ---
HPI - Wound/Laceration General Chief Complaint: Wound/Laceration Stated Complaint: dog bite upper left thigh Time Seen by Provider: 04/01/23 15:49 Source: patient, RN notes reviewed and old records reviewed Mode of arrival: ambulatory Limitations: no limitations History of Present Illness HPI narrative: 47-year-old female presents to the [facility] with concerns of a dog bite to the left upper posterior thigh. Patient has 3 puncture wounds that are healed, no erythema, no fluctuance, no increased warmth. Has been cleaning extremely well. Received her last Tdap approximately 2 months ago Patient reports that she has been ?googling dog bites and wants to make sure she is okay. Onset (ago): week(s) (1) Related Data Allergies Allergy/AdvReac Type Severity Reaction Status Date / Time No Known Allergies Allergy Verified 04/01/23 14:49 Review of Systems Review of Systems: All systems reviewed & are unremarkable except as noted in HPI and below Constitutional: Constitutional: Reports no additional constitutional complaints Eyes: Eyes: Reports no additional eye complaints ENT: Reports system reviewed and no additional complaints, except as documented Cardiovascular: Cardiovascular: Reports no additional cardiovascular complaints, Denies chest pain and Denies dyspnea Respiratory: Respiratory: Reports no additional respiratory complaints, Denies chest congestion, Denies cough and Denies dyspnea Gastrointestinal: Gastrointestinal: Reports no additional gastrointestinal complaints, Denies abdominal pain, Denies nausea and Denies vomiting Musculoskeletal: Musculoskeletal: Reports no additional musculoskeletal complaints Integumentary/Breasts: Skin/Breast: Reports as per HPI, Denies striae, Denies unusual bruising and Reports wounds Neurologic: Reports system reviewed and no additional complaints, except as documented Psychiatric: Psychiatric: Reports no additional psychiatric complaints Allergic/Immunologic: Allergic/Immunologic: Reports no additional allergic/immunologic complaints [facility] Past Medical History Medical History Anxiety and depression Bipolar disorder Iron deficiency anemia after gastrectomy Methamphetamine abuse Multiple personality disorder Obstructive sleep apnea Does not use CPAP but had polysomnogram in 2007 recommending CPAP of 11 Surgical History Surgical History History of appendectomy (1992) History of gastric bypass (08/2006) Pre bypass weight was 320 lb History of tonsillectomy and adenoidectomy (~1990) History of tubal ligation (~2001) S/P foot surgery, right (05/2005) Plantar fascial release and excision of right calcaneal spur S/P right rotator cuff repair (09/2015) Family History Family History Father COPD (chronic obstructive pulmonary disease) Peripheral vascular disease Myocardial infarction, Onset Age: 62 Heart disease Obesity Sibling Alcoholism Mother Obesity Social History Social History Social History: She works at a [employer]. She reports that she smokes a pack of cigarettes per day on the days that she drinks. She thinks that she has smoked up to a pack of cigarettes per day on and off since she was 15 years old with up to around 20 pack per year smoking history. She drinks approximately 5 beers in 5 shots a day 3-5 days a week. She has a history of both cocaine and IV methamphetamine use. She last used cocaine 2 months ago and methamphetamines approximately 1 year ago. She smokes marijuana frequently. She has 1 daughter. Years smoked: 20 Smoking status: Current some day smoker Tobacco type: cigarettes Alcohol intake: current Drinks per week: 36 Substance use: former Substance use type: former substance user,
== END 2023-04-01 15:55 | disposition home or self-care (01) ==
PROVIDERS: Emergency Provider Nurse Practitioner; PCP Emergency Medicine
DX: S71.132A Puncture wound without foreign body, left thigh, initial encounter (principal); W54.0XXA Bitten by dog, initial encounter; F17.210 Nicotine dependence, cigarettes, uncomplicated; G47.33 Obstructive sleep apnea (adult) (pediatric); Z91.199 Patient's noncompliance with other medical treatment and regimen due to unspecified reason
CPT/HCPCS: 99212; G0463

== ENCOUNTER → 2023-04-21 15:00 | Outpatient (CLI) | payer MEDICARE, SELFPAY ==
--- NOTE | ~2023-04-21 | MM_ITS ---
EXAMINATION: MM screening abrahan BI w josue HISTORY: Screening TECHNIQUE: Craniocaudal and mediolateral oblique 3-D tomosynthesis images were obtained and synthetic 2-D images were generated. CAD analysis was submitted and interpreted. COMPARISON: No prior mammogram is available for comparison at this institution. BREAST PARENCHYMAL COMPOSITION: There are scattered areas of fibroglandular density. FINDINGS: There is no evidence of suspicious mass, calcification, or architectural distortion to sugg est malignancy in either breast. There has been no suspicious interval change. IMPRESSION: 1. No mammographic evidence of malignancy. 2. Recommend routine screening mammography in one year. BI-RADS Category 1: Negative Reviewed, dictated and finalized at location A. 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
== END ==
PROVIDERS: PCP Emergency Medicine; Visit Provider Emergency Medicine
DX: Z12.31 Encounter for screening mammogram for malignant neoplasm of breast (principal)
CPT/HCPCS: 77063; 77067

== ENCOUNTER 2023-10-13 23:48 | Emergency (ER) | payer MEDICARE, BC, SELFPAY ==
--- NOTE | ~2023-10-13 | XR_ITS ---
EXAMINATION: XR foot LT min 3V DATE: 10/14/2023 04:42 INDICATION: Left foot pain. TECHNIQUE: 4 views of left foot were obtained. COMPARISON: None. FINDINGS: Bone alignment is normal. No fracture. There is mild midfoot osteoarthritis. There is an en thesophyte at plantar aspect of calcaneal tuberosity. IMPRESSION: 1. Mild midfoot osteoarthritis. Reviewed, dictated and finalized at location A.
--- NOTE | ~2023-10-13 | XR_ITS ---
EXAMINATION: XR foot RT min 3V DATE: 10/14/2023 04:41 INDICATION: Right foot pain. TECHNIQUE: 4 views of right foot were obtained. COMPARISON: None. FINDINGS: Bone alignment is normal. No fracture. Joint spaces are normal. There is an enthesophyte at the posterior aspect of calcaneal tuberosity. IMPRESSION: 1. No fracture. Reviewed, dictated and finalized at location A. IMPRESSION: 1. No fracture.
[2023-10-13 23:59] VITALS: BP 154/95; PULSE 93; RESP 20; TEMP 36.6; O2SAT 98
--- NOTE | 2023-10-14 03:10 | PC.NURSE ---
NO ANSWER WHEN CALLED IN ED WR TO COME BACK TO MAIN ED AT 0310.
[2023-10-14 03:55] VITALS: BP 101/58; PULSE 94; RESP 16; O2SAT 100
--- NOTE | 2023-10-14 04:23 | ED.GENADULT ---
HPI - General Adult General Chief complaint: Unspecified Stated complaint: muscle pain Time Seen by Provider: 10/14/23 04:18 History of Present Illness HPI narrative: This is a 48-year-old female history of amphetamine use presenting with foot pain. Patient says she was working all last night on her feet at her job that is why her feet her today. She denies any trauma. 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 She is currently crying, rocking back and forth, talking to herself. No SI HI. Patient states that feet hurt too much to walk but we were able to get her up and walk around the room with no complaints. Related Data Allergies Allergy/AdvReac Type Severity Reaction Status Date / Time No Known Allergies Allergy Verified 04/01/23 14:49 [facility] Past Medical History Medical History Anxiety and depression Bipolar disorder Iron deficiency anemia after gastrectomy Methamphetamine abuse Multiple personality disorder Obstructive sleep apnea Does not use CPAP but had polysomnogram in 2007 recommending CPAP of 11 Surgical History Surgical History History of appendectomy (1992) History of gastric bypass (08/2006) Pre bypass weight was 320 lb History of tonsillectomy and adenoidectomy (~1990) History of tubal ligation (~2001) S/P foot surgery, right (05/2005) Plantar fascial release and excision of right calcaneal spur S/P right rotator cuff repair (09/2015) Family History Family History Father COPD (chronic obstructive pulmonary disease) Peripheral vascular disease Myocardial infarction, Onset Age: 62 Heart disease Obesity Sibling Alcoholism Mother Obesity Social History Social History Social History: 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 She reports that she smokes a pack of cigarettes per day on the days that she drinks. She thinks that she has smoked up to a pack of cigarettes per day on and off since she was 15 years old with up to around 20 pack per year smoking history. She drinks approximately 5 beers in 5 shots a day 3-5 days a week. She has a history of both cocaine and IV methamphetamine use. She last used cocaine 2 months ago and methamphetamines approximately 1 year ago. She smokes marijuana frequently. She has 1 daughter. Years smoked: 20 Smoking status: Current some day smoker Tobacco type: cigarettes Alcohol intake: current Drinks per week: 36 Substance use: former Substance use type: former substance user, marijuana, crack/cocaine and methamphetamine Other substance usage details: marijuana a few days ago/2months ago cocaine Last use: 1 year ago Lack of Transportation: No Lack of Food: Never True Current Housing: I Have Housing Concerned About Future Housing: No Difficulty Paying Gas/Electric Bills: No Difficulty Paying for Meds: No Currently Unemployed: No Difficulty w/ Childcare or Family Care: No Gender identity (if verbalized by the patient): Female Spiritual care concerns: No Exam Narrative: APPEARANCE: Patient is crying, is rocking back and forth in bed, Head: atraumatic. EYES: EOMI, NOSE: Atraumatic NECK: Trachea midline RESPIRATORY: No increased rate of breathing CARDIOVASCULAR: RRR, ABDOMINAL: Non-distended MUSCULOSKELETAl: Focal exam of the feet showed minor swelling over dorsum of the right foot. No pitting edema. No bruising or signs of trauma. No focal tenderness. Pulses are intact cap refill is less than 2 seconds. NEURO: Alert. Moving 4/4 extremities SKIN:: Warm, dry. Normal color PSYCHIATRIC: Normal affect Course Vital Signs Vital signs: Vital Signs Temperature 97.8 F 10/13/23 23:59 Pulse Rate 93 10/13/23 23:59 Respiratory Rate 20 10/13/23 23:59 Blood
[2023-10-14] MEDS: ACETAMINOPHEN 500 MG TABLET 1000 MG PO (04:33)
== END 2023-10-14 05:22 | disposition home or self-care (01) ==
PROVIDERS: Emergency Provider Emergency Medicine; PCP Emergency Medicine
DX: M79.672 Pain in left foot (principal); M79.671 Pain in right foot; F15.10 Other stimulant abuse, uncomplicated; F17.210 Nicotine dependence, cigarettes, uncomplicated
CPT/HCPCS: 73630; 99284; A9270

== ENCOUNTER 2024-07-26 13:16 | Emergency (ER) | payer OTHER, SELFPAY ==
--- NOTE | 2024-07-26 13:20 | ED.UPPEXIN ---
HPI - Extremity Injury (Upper) General Chief Complaint: Extremity Problem,Nontraumatic Stated Complaint: Right Hand/Elbow Pain Time Seen by Provider: 07/26/24 13:19 Source: patient Mode of arrival: ambulatory Limitations: no limitations History of Present Illness HPI narrative: Shiela is a 48-year-old female patient presenting to the clinic today with complaints of right elbow and hand pain x2 days. States that she was helping a friend remove some leonor over the weekend and started developing the a and burning pain in the medial elbow radiating down into the hand. States that she is having some numbness and tingling and the 3rd 4th and 5th fingers of the right hand. Denies any neck pain or past injury to her neck. Does have history of shoulder tendinitis Related Data Allergies Allergy/AdvReac Type Severity Reaction Status Date / Time No Known Allergies Allergy Verified 07/26/24 13:34 Review of Systems Review of Systems: Pertinent positives per HPI. Patient denies any fever, chills, rash, headache, visual changes, dizziness, cough, runny nose, sore throat, shortness of breath, chest pain, palpitations, nausea, vomiting, diarrhea, constipation, abdominal pain, or any urinary issues. [facility] Past Medical History Medical History Multiple personality disorder Bipolar disorder Anxiety and depression Obstructive sleep apnea Does not use CPAP but had polysomnogram in 2007 recommending CPAP of 11 Iron deficiency anemia after gastrectomy Methamphetamine abuse Surgical History Surgical History History of tubal ligation (~2001) S/P foot surgery, right (05/2005) Plantar fascial release and excision of right calcaneal spur S/P right rotator cuff repair (09/2015) History of appendectomy (1992) History of tonsillectomy and adenoidectomy (~1990) History of gastric bypass (08/2006) Pre bypass weight was 320 lb Family History Family History Father COPD (chronic obstructive pulmonary disease) Peripheral vascular disease Myocardial infarction, Onset Age: 62 Heart disease Obesity Sibling Alcoholism Mother Obesity Social History Social History (Reviewed 07/26/24 @ 14:10 by SWETA Pollack Social History: She works at a local [employer] facility. She reports that she smokes a pack of cigarettes per day on the days that she drinks. She thinks that she has smoked up to a pack of cigarettes per day on and off since she was 15 years old with up to around 20 pack per year smoking history. She drinks approximately 5 beers in 5 shots a day 3-5 days a week. She has a history of both cocaine and IV methamphetamine use. She last used cocaine 2 months ago and methamphetamines approximately 1 year ago. She smokes marijuana frequently. She has 1 daughter. Years smoked: 20 Smoking status: Current some day smoker Tobacco type: cigarettes Alcohol intake: current Drinks per week: 36 Substance use: former Substance use type: former substance user, marijuana, crack/cocaine and methamphetamine Other substance usage details: marijuana a few days ago/2months ago cocaine Last use: 1 year ago Lack of Transportation: No Lack of Food: Never True Current Housing: I Have Housing Concerned About Future Housing: No Difficulty Paying Gas/Electric Bills: No Difficulty Paying for Meds: No Currently Unemployed: No Difficulty w/ Childcare or Family Care: No Gender identity (if verbalized by the patient): Female Spiritual care concerns: No Comments At the time of my signature, I reviewed and agree with the nursing past medical, surgical, social, and family history. There is no relevant family history pertinent to the patient complaint. Exam Narrative: General: Well-developed, well nourished, in no apparent distress Head: Normocephalic, atraumatic. Cardio: Regular rate and rhythm, s1 and s2 normal, no murmur appreciated. Resp: Clear to auscultation bilaterally, no rhonchi, rales, wheezing or rubs. Musculoskeletal: No deformity, tender to palpation over the medial epicondyle with pain radiating down the right arm/hand, pain with flexion and extension over the right elbow-medial epicondyle, muscle strength strong and equal, peripheral pulse strong, no edema, no cyanosis, normal gait and station Course Course Emergency Course: Portions of this record may have been created with voice recognition software. Level of Care: Express Care Visit Vital Signs Vital signs: Vital Signs Temperature 36.9 C 07/26/24 13:28 Pulse Rate 80 07/26/24 13:28 Respiratory Rate 16 07/26/24 13:28 Blood Pressure 131/64 07/26/24 13:28 Pulse Oximetry 98 07/26/24 13:28 Oxygen Delivery Room Air 07/26/24 13:28 Temperature 36.9 C 07/26/24 13:28 Pulse Rate 80 07/26/24 13:28 Respiratory Rate 16 07/26/24 13:28 Blood Pressure 131/64 07/26/24 13:28 Pulse Oximetry 98 07/26/24 13:28 Oxygen Delivery Room Air 07/26/24 13:28 Vital signs reviewed MDM - Extremity Injury (Upper) MDM Narrative Medical decision making narrative: At the time of visit patient is resting comfortably on the exam table. Patient appears to be nontoxic. Plan: I suspect patient has medial epicondylitis. She denies any injury or pain and her neck. Prescription for Medrol Dosepak was sent to the pharmacy. Supportive measures were discussed with the patient and they voiced understanding discharge instructions and agrees to treatment plan. Return precautions reviewed Differential Diagnosis Differential diagnosis: Likely other (Medial epicondylitis, shoulder tendinitis, cervical radiculopathy, carpal tunnel, wrist tendinitis) Discharge Plan Discharge Clinical Impression: Epicondylitis elbow, medial Qualifiers: Laterality: right Qualified Code(s): M77.01 - Medial epicondylitis, right elbow Patient Disposition: Home Condition: Stable Instructions: Antibiotic Form, Golfer's Elbow (ED) Additional Instructions: Rest, ice, elevate, and wear josé manuel wrap as directed Tylenol/motrin for pain as discussed. May take Medrol Dosepak as prescribed Follow up with your PCP if symptoms persist more than 1 week. Patient Language: Croatian Prescriptions: New methylprednisolone [Medrol (Channing)] 4 mg tablets,dose pack See Rx Instructions PO .COMPLEX Qty: 21 0RF Rx Instructions: orally per package directions Follow-up/Referrals: Darius Cedillo MD [Physician] - Time of Disposition: 13:42 Quality NIHSS Nursing Documentation ED NIHSS nursing documentation: reviewed/agree
[2024-07-26 13:28] VITALS: BP 131/64; PULSE 80; RESP 16; TEMP 36.9; O2SAT 98
== END 2024-07-26 13:50 | disposition home or self-care (01) ==
PROVIDERS: Emergency Provider Nurse Practitioner Family
DX: M77.01 Medial epicondylitis, right elbow (principal); F17.210 Nicotine dependence, cigarettes, uncomplicated; F12.90 Cannabis use, unspecified, uncomplicated
CPT/HCPCS: 99213; G0463

== ENCOUNTER 2024-09-23 10:50 | Emergency (ER) | payer OTHER, SELFPAY ==
--- NOTE | ~2024-09-23 | XR_ITS ---
EXAMINATION: XR knee LT min 4V DATE: 09/23/2024 11:22 INDICATION: Anterolateral left lower knee pain. TECHNIQUE: Anteroposterior, 2 oblique and crosstable lateral views of the left knee were obtained COMPARISON: None. FINDINGS: Alignment is normal. No fracture. Joint spaces appear normal although joint space narrowing can be u nderestimated on nonweightbearing imaging. No joint effusion/layering lipohemarthrosis. Soft tissues are unremarkable. IMPRESSION: 1. Negative left knee radiographs. Reviewed, dictated and finalized at location A.
--- NOTE | 2024-09-23 10:54 | ED_ITS ---
HPI - Extremity Injury (Lower) General Chief Complaint: Extremity Injury, Lower Stated Complaint: Left Knee Pain Time Seen by Provider: 09/23/24 10:53 Source: patient Mode of arrival: ambulatory Limitations: no limitations History of Present Illness HPI Narrative: Shiela is a 49 year old female patient presenting to the clinic today with c/o left anterior lateral lower knee/tib fib pain. [place] a pop to the knee last night when walking on steps. Rates pain 10/10. Has not taken any pain medications. Patient is at times tearful and then laughing- laughs when questions are asked. Hurts to bend knee and bear weight. Related Data Home Medications ?Medication ?Instructions ?Recorded ?Confirmed ?Last Taken ?Type No Home Medications 09/23/24 09/23/24 Unknown History Allergies Allergy/AdvReac Type Severity Reaction Status Date / Time No Known Allergies Allergy Verified 09/23/24 11:02 Review of Systems Review of Systems: Pertinent positives per HPI. Patient denies any fever, chills, rash, headache, visual changes, dizziness, cough, runny nose, sore throat, shortness of breath, chest pain, palpitations, nausea, vomiting, diarrhea, constipation, abdominal pain, or any urinary issues. [facility] Past Medical History Medical History Multiple personality disorder Bipolar disorder Anxiety and depression Obstructive sleep apnea Does not use CPAP but had polysomnogram in 2007 recommending CPAP of 11 Iron deficiency anemia after gastrectomy Methamphetamine abuse Surgical History Surgical History History of tubal ligation (~2001) S/P foot surgery, right (05/2005) Plantar fascial release and excision of right calcaneal spur S/P right rotator cuff repair (09/2015) History of appendectomy (1992) History of tonsillectomy and adenoidectomy (~1990) History of gastric bypass (08/2006) Pre bypass weight was 320 lb Family History Family History Father COPD (chronic obstructive pulmonary disease) Peripheral vascular disease Myocardial infarction, Onset Age: 62 Heart disease Obesity Sibling Alcoholism Mother Obesity Social History Social History (Reviewed 09/23/24 @ 11:12 by SWETA Pollack Social History: She works at a local [employer] facility. She reports that she smokes a pack of cigarettes per day on the days that she drinks. She thinks that she has smoked up to a pack of cigarettes per day on and off since she was 15 years old with up to around 20 pack per year smoking history. She drinks approximately 5 beers in 5 shots a day 3-5 days a week. She has a history of both cocaine and IV methamphetamine use. She last used cocaine 2 months ago and methamphetamines approximately 1 year ago. She smokes marijuana frequently. She has 1 daughter. Years smoked: 20 Smoking status: Current some day smoker Tobacco type: cigarettes Alcohol intake: current Drinks per week: 36 Substance use: former Substance use type: former substance user, marijuana, crack/cocaine and methamphetamine Other substance usage details: marijuana a few days ago/2months ago cocaine Last use: 1 year ago Lack of Transportation: No Lack of Food: Never True Current Housing: I Have Housing Concerned About Future Housing: No Difficulty Paying Gas/Electric Bills: No Difficulty Paying for Meds: No Currently Unemployed: No Difficulty w/ Childcare or Family Care: No Gender identity (if verbalized by the patient): Female Spiritual care concerns: No Comments At the time of my signature, I reviewed and agree with the nursing past medical, surgical, social, and family history. There is no relevant family history pertinent to the patient complaint. Exam Narrative: General: Well-developed, well nourished, in no apparent distress Head: Normocephalic, atraumatic. Cardio: Regular rate and rhythm, s1 and s2 normal, no murmur appreciated. Resp: Clear to auscultation bilaterally, no rhonchi, rales, wheezing or rubs. Musculoskeletal: No deformity, no swelling or bruising noted, varicose vein over the area that is tender- tender to palpation over the lateral left anterior lower knee/proximal tib-fib, unable to flex left knee past 30?- due to pain, muscle strength strong and equal, peripheral pulse strong, no edema, no cyanosis, normal gait and station Course Course Emergency Course: Portions of this record may have been created with voice recognition software. Level of Care: Express Care Visit Vital Signs Vital signs: Vital Signs Temperature 36.9 C 09/23/24 10:55 Pulse Rate 80 09/23/24 10:55 Respiratory Rate 20 09/23/24 10:55 Blood Pressure 127/77 09/23/24 10:55 Pulse Oximetry 98 09/23/24 10:55 Oxygen Delivery Room Air 09/23/24 10:55 Temperature 36.9 C 09/23/24 10:55 Pulse Rate 80 09/23/24 10:55 Respiratory Rate 20 09/23/24 10:55 Blood Pressure 127/77 09/23/24 10:55 Pulse Oximetry 98 09/23/24 10:55 Oxygen Delivery Room Air 09/23/24 10:55 Vital signs reviewed MDM - Extremity Injury (Lower) MDM Narrative Medical decision making narrative: At the time of visit patient is resting comfortably on the exam table. Patient appears to be nontoxic. /o left anterior lateral lower knee/tib fib pain. [place] a pop to the knee last night when walking on steps. Rates pain 10/10. Has not taken any pain medications. Patient is at times tearful and then laughing- laughs when questions are asked. Hurts to bend knee and bear weight. Left knee x-ray was ordered. Diagnostics: X-ray of the left knee was performed and was negative for any sign of fracture or malalignment of the left knee. Plan: I suspect patient has a left knee sprain. Keshawn wrap and ice pack was given to the patient, sensation, circulation, and motion within normal limits after application of Ekshawn wrap. Supportive measures were discussed with the patient and they voiced understanding discharge instructions and agrees to treatment plan. Return precautions reviewed Differential Diagnosis Differential diagnosis: Likely acute internal derangement of knee and other (Knee sprain, tibia fracture, femur fracture) Imaging Data Radiologist's impression: ITS Impressions Knee X-Ray 09/23/24 11:35 IMPRESSION: 1. Negative left knee radiographs. Discharge Plan Discharge Clinical Impression: Left knee sprain Qualifiers: Encounter type: initial encounter Involved ligament of knee: lateral collateral ligament Qualified Code(s): S83.422A - Sprain of lateral collateral ligament of left knee, initial encounter Patient Disposition: Home Condition: Stable Instructions: Antibiotic Form, Knee Sprain (ED) Additional Instructions: Rest, ice, elevate, and wear keshawn wrap as directed Tylenol/motrin for pain as discussed. Gradually bear weight No running or sports until healed. Follow up with your PCP if symptoms persist more than 1 week. Patient Language: Serbian Prescriptions: No Action No Home Medications Follow-up/Referrals: UNKNOWN,DOCTOR [Non-Staff] - Stand Alone Forms: Work/School Release IP Time of Disposition: 11:40 Quality NIHSS Nursing Documentation ED NIHSS nursing documentation: reviewed/agree
[2024-09-23 10:55] VITALS: BP 127/77; PULSE 80; RESP 20; TEMP 36.9; O2SAT 98
== END 2024-09-23 11:45 | disposition home or self-care (01) ==
PROVIDERS: Emergency Provider Nurse Practitioner Family
DX: S83.422A Sprain of lateral collateral ligament of left knee, initial encounter (principal); F17.210 Nicotine dependence, cigarettes, uncomplicated; X50.0XXA Overexertion from strenuous movement or load, initial encounter
CPT/HCPCS: 73564; 99213; G0463